=== PATIENT | male | born 1950 | race Caucasian/White ===

== ENCOUNTER 2022-08-09 18:17 | Inpatient (IN) | payer MEDICARE, OTHER ==
[~2022-08-09] VITALS: Ht 162.6 cm; Wt 73.0 kg
--- NOTE | 2022-08-09 18:33 | NUR ---
BIB [facility] C/O DYSURIA AND HEMATURIA SINCE YESTERDAY. PLACED ON BED, AAOX4, BREATHING EVEN AND UNLABORED SATURATING AT 99% WITH 3LIT O2.
[2022-08-09] MEDS ORDERED: IV NS 0.9% 1,000 ML BAG IV ONE (19:00)
--- NOTE | 2022-08-09 19:15 | NUR ---
BLOOD DRAWN AND SENT TO LAB
--- NOTE | 2022-08-09 19:18 | NUR ---
PATIENT TAKEN TO CT VIA SALINAS
[2022-08-09 19:50] LABS: ALANINE AMINOTRANSFERASE 23 U/L (12-78); ALBUMIN 3.1 g/dL (3.4-5.0); ALKALINE PHOSPHATASE 72 U/L (46-116); ASPARTATE AMINOTRANSFERASE 18 U/L (15-37); BILIRUBIN,DIRECT 0.1 mg/dL (0.0-0.2); BILIRUBIN,TOTAL 0.3 mg/dL (0.2-1.0); CALCIUM, SERUM 9.4 mg/dL (8.5-10.1); CARBON DIOXIDE 28 mmol/L (21-32); CHLORIDE 101 mmol/L (98-107); CREATININE 6.5 mg/dL (0.6-1.3); GLUCOSE 121 mg/dL (74-106); LIPASE 364 U/L (73-393); POTASSIUM 4.9 mmol/L (3.5-5.1); SODIUM SERUM 138 mmol/L (136-145); TOTAL PROTEIN, SERUM 8.5 g/dL (6.4-8.2); UREA NITROGEN, BLOOD 77 mg/dL (7-18)
[2022-08-09 20:03] LABS: BASOPHILS % (AUTO) 0.3 % (0.0-2.0); HEMATOCRIT 27 % (39-51); HEMOGLOBIN 8.8 g/dL (13.5-17.5); LYMPHOCYTES # (AUTO) 0.3 K/uL (0.8-4.8); LYMPHOCYTES % (AUTO) 7.4 % (20.0-44.0); MEAN CORPUSCULAR HGB CONC 33 g/dl (31.0-36.0); MEAN CORPUSCULAR VOLUME 112 fL (80-96); MONOCYTES # (AUTO) 0.9 K/uL (0.1-1.30); MONOCYTES % (AUTO) 19.4 % (2.0-12.0); NEUTROPHILS # (AUTO) 3.3 K/uL (1.8-8.9); NEUTROPHILS % (AUTO) 69.9 % (43.0-81.0); PLATELET COUNT (AUTO) 130 K/uL (150-450); RED BLOOD CELL COUNT(AUTO) 2.38 MIL/uL (4.5-6.0); WHITE BLOOD COUNT (AUTO) 4.7 K/uL (4.3-11.0)
--- NOTE | 2022-08-09 20:30 | NUR ---
RAMOS CATH FR16 INSERTED DRAINING TO DARK RED (BLOOD) OUTPUT CLOTS VISIBLE DR CASTRO AWARE. 3WAY RAMOS CATH FR16 NOT AVAILABLE CONTACTED ICU IF THEY HAVE AND THEY DONT HAVE.
[2022-08-09 21:32] LABS: BAND % (MANUAL) 2 % (0.0-5.0); EOSINOPHILS % (MANUAL) 3 % (0-4); LYMPHOCYTES % (MANUAL) 9 % (16-48); MONOCYTES % (MANUAL) 15 % (0-11.0); NEUTROPHILS % (MANUAL) 71 (42-76)
--- NOTE | 2022-08-09 21:35 | NUR ---
SWAB FOR COVID19 SENT TO LAB
--- NOTE | 2022-08-09 21:54 | NUR ---
URINE SAMPLE SENT TO LAB
--- NOTE | 2022-08-09 22:21 | NUR ---
DR. HAGER UROLOGIST AT PT'S BEDSIDE
[2022-08-09 22:32] LABS: BILIRUBIN,URINE SMALL (NEGATIVE); COLOR,URINE RED (YELLOW); LEUKOCYTE ESTERASE ,URINE SMALL (NEGATIVE); NITRITE, URINE NEGATIVE (NEGATIVE); PH,URINE 7.5 (5.0-8.0); PROTEIN,URINE >=300 mg/dl (NEGATIVE); UGLUCOSE NEGATIVE (NEGATIVE); UROBILINOGEN,URINE 0.2 EU/dL (0.2)
[2022-08-09 22:42] LABS: BACTERIA,URINE Rare /HPF (None Seen); RBC,URINE TOO NUMEROUS TO COUN /HPF (0-2); SQUAMOUS EPITHELIAL CELL,UR Rare /HPF (None Seen); WBC,URINE 0-2 /HPF (0-3)
[2022-08-09] MEDS ORDERED: ACETAMINOPHEN 325 MG TABLET PO PRN (23:00)
[2022-08-09] MEDS ORDERED: MAG HYDROX/AL HYDROX/SIMETH 30 ML UDC PO PRN (23:00)
[2022-08-09] MEDS ORDERED: Z GUARD REMEDY 4 OZ OINT TP PRN (23:00)
[2022-08-09] MEDS ORDERED: HYDROCODONE/APAP 5/325MG TABLET PO PRN (23:00)
[2022-08-09] MEDS ORDERED: MAGNESIUM HYDROXIDE 30 ML UDC PO PRN (23:00)
[2022-08-09] MEDS ORDERED: HYDROCODONE/APAP 10/325MG TABLET PO PRN (23:00)
[2022-08-09] MEDS ORDERED: ONDANSETRON HCL/PF 4 MG/2 ML VIAL IVP PRN (23:00)
[2022-08-09] MEDS ORDERED: TEMAZEPAM 15 MG CAPSULE PO PRN (23:00)
[2022-08-09] MEDS ORDERED: CEFTRIAXONE 1GM BAG (ER ONLY) 50 ML IV ONE (23:12)
[2022-08-09] MEDS: CEFTRIAXONE 1 G in IV D5W 50 ML IV SCH (23:15)
[2022-08-10 05:19] LABS: BASOPHILS % (AUTO) 0.3 % (0.0-2.0); EOSINOPHILS % (AUTO) 2.4 % (0.0-6.0); HEMATOCRIT 26 % (39-51); HEMOGLOBIN 8.5 g/dL (13.5-17.5); LYMPHOCYTES # (AUTO) 0.3 K/uL (0.8-4.8); LYMPHOCYTES % (AUTO) 4.3 % (20.0-44.0); MEAN CORPUSCULAR HGB CONC 33 g/dl (31.0-36.0); MEAN CORPUSCULAR VOLUME 113 fL (80-96); MONOCYTES % (AUTO) 14.9 % (2.0-12.0); NEUTROPHILS % (AUTO) 78.1 % (43.0-81.0); PLATELET COUNT (AUTO) 121 K/uL (150-450); RED BLOOD CELL COUNT(AUTO) 2.26 MIL/uL (4.5-6.0); WHITE BLOOD COUNT (AUTO) 6.4 K/uL (4.3-11.0)
[2022-08-10 05:42] LABS: CALCIUM, SERUM 9.2 mg/dL (8.5-10.1); CARBON DIOXIDE 23 mmol/L (21-32); CHLORIDE 103 mmol/L (98-107); GLUCOSE 95 mg/dL (74-106); MAGNESIUM 2.2 mg/dL (1.8-2.4); PHOSPHORUS 6.9 mg/dL (2.5-4.9); POTASSIUM 4.6 mmol/L (3.5-5.1); SODIUM SERUM 138 mmol/L (136-145)
[2022-08-10 05:59] LABS: UREA NITROGEN, BLOOD 81 mg/dL (7-18)
--- NOTE | 2022-08-10 07:57 | NUR ---
REPORT GIVEN TO JESUS NICOLE FOR [place]
--- NOTE | 2022-08-10 07:59 | NUR ---
ULTRASOUND AT BEDSIDE
[2022-08-10] MEDS ORDERED: SEVE800T8 PO (08:45)
[2022-08-10] MEDS ORDERED: NUT.237L67 PO (08:45)
[2022-08-10] MEDS ORDERED: ACET325T53 PO (08:45)
[2022-08-10] MEDS ORDERED: CARV3.12 PO (08:45)
[2022-08-10] MEDS ORDERED: AMIN887L PO (08:45)
[2022-08-10] MEDS ORDERED: FOLI0.8T2 PO (08:45)
--- NOTE | 2022-08-10 09:15 | NUR ---
CONTINUOUS MINING OPERATORBRIM PLATER NOTES RECEIVED PATIENT VIA RNEY FROM ER @0915 WITH DX OF ACUTE HEMATURIA. PATIENT NOTED WITH BLOODY DARK RED URINE VIA RAMOS CATH BAG. ALERT/ORIENTED X3. PATIENT ON 3L NC, TOLERATING WELL. NO SIGNS OF DISTRESS OR SOB NOTED. IV ACCESS ON LEFT HAND WITH 20G SL, DRY PATENT AND INTACT. 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 PT HAS RIGHT FEMORAL CATH FOR HD WITH DRESSING C/D/I. PHOTOS OF SKIN ISSUES TAKEN AND FILED ON HIS CHART. PATIENT PRESENTED WITH BRUISES ON KNEE AND LOWER BACK/SACRAL AREA. PATIENT ON HD, M,W,F. WILL RECEIVE HD TODAY. SAFETY MEASURES IN PLACE: BED LOCKED, LOWEST POSITION, SIDE RAILS UP X3, CALL LIGHT AND TABLE WITHIN REACH.
--- NOTE | 2022-08-10 09:15 | NUR ---
CABLE TV INSTALLER NOTES RECEIVED PATIENT VIA GURNEY FROM ER. PATIENT CAME IN WITH COMPLAINTS OF BLOOD IN URINE. PATIENT ALERT/ORIENTED X3. PATIENT HAD DARK RED URINE VIA RAMOS CATH. PT ON 2L NC Addendum: 08/10/22 at 1218 by JESUS ELY RN NOTES NOT COMPLETELY DONE.
--- NOTE | 2022-08-10 09:19 | NUR ---
PT TRANSFERRED TO 3W WITH ACLS PROTOCOL IN PLACE. PT TRANSFERRED IN STABLE CONDITION.
[2022-08-10 09:20] VITALS: BP 130/92
[2022-08-10] MEDS: VIT B CMPLX 3/FA/VIT C/BIOTIN 1 TAB TABLET PO SCH (09:34)
[2022-08-10] MEDS: SEVELAMER CARBONATE 800 MG POWD.PACK GT SCH ×2 (09:34→12:08)
[2022-08-10] MEDS: PANTOPRAZOLE 40 MG TABLET.DR PO SCH (09:34)
[2022-08-10] MEDS: CARVEDILOL 3.125 MG TABLET PO SCH ×2 (09:35→17:00)
[2022-08-10 09:42] LABS: EOSINOPHILS % (MANUAL) 2 % (0-4); LYMPHOCYTES % (MANUAL) 6 % (16-48); MONOCYTES % (MANUAL) 10 % (0-11.0); NEUTROPHILS % (MANUAL) 82 (42-76)
[2022-08-10 16:09] VITALS: BP 103/73
--- NOTE | 2022-08-10 16:40 | NUR ---
RN NOTES HEMODIALYSIS VIA CHEST WALL VIA RIGHT FEMORAL HD CATH FINISHED WITH 1L OUT. PT TOLERATED PROCEDURE WELL WITH NO ACUTE DISTRESS NOTED
[2022-08-10] MEDS: SEVELAMER CARBONATE 800 MG TABLET PO SCH ×2 (17:18→17:29)
--- NOTE | 2022-08-10 18:48 | NUR ---
RN CLOSING NOTES PATIENT IN BED, AWAKE, ALERT/ORIENTED 3-4. HAS O2 3L VIA NC 98%, TOLERATING WELL, NO SOB NOTED OR DISTRESS. PATIENT HAS IV ACCESS ON LH 20G SL, DRY, INTACT AND PATENT. PATIENT HAS FEMORAL FISTULA WITH DRESSING, DRY, CLEAN AND INTACT. SAFETY MEASURES IN PLACE: CALL LIGHT WITHIN REACH, BED IN LOWEST LOCKED POSITION, SIDE RAILS UP X3, BED ALARM ON. WILL ENDORSE TO NIGHT NURSE FOR C.O.C.
--- NOTE | 2022-08-10 19:20 | NUR ---
TELERN RECEIVED FULLY AWAKE, RAMOS TO GRAVITY GROSS HEMATURIA. NEEDS CLOSER OBSERVATION WILL WATCH FOR POSSIBLE OBSTRUCTION . DR. WAY FOR CONSULT TO CONTINUE. UNDERSTANDS PLAN OF CARE AND MEDICATION REGIMEN. KEPT COMFORTABL, TO CONTINUE.
[2022-08-10 20:00] VITALS: BP 125/78
[2022-08-10] MEDS: CEFTRIAXONE 1 G in IV D5W 50 ML IV SCH (21:00)
--- NOTE | 2022-08-10 22:30 | NUR ---
TELERN DISCUSSED TO PATIENT REGARDING PLAN OF CARE, AWARE OF UROLOGIST S' PLAN IN REFERENCE WITH HIS HEMATURIA. STILL WITH GROSSLY HEMATURIA, NO BLOOD CLOTS. SAFETY PRECAUTIONS EMPHASIZED, REMINDED TO CALL STAFF FOR ANY ASSISTANCE OR DISCOMFORTS, CALL LIGHT USE REVIEWED WITH PATIENT WELL UNDERSTOOD. CONTINUED MONITORING.
--- NOTE | 2022-08-10 23:00 | NUR ---
TELERN ENDORSED TO INCOMING RN FOR CONTINUITY OF CARE.
--- NOTE | 2022-08-11 04:29 | NUR ---
closing notes: slept thru the night remains alert and orientated x4 on the monitor SR this 12 hours HR 84 -88/min no c/o palpitations Addendum: 08/11/22 at 0438 by ZIA WILKES RN WRONG PATIENT
--- NOTE | 2022-08-11 04:50 | NUR ---
CLOSING NOTES: URINE FROM THE RAMOS bloody BUT CLEAR ARLETTE CALLED AND STATED NO BEDS AVAILABLE PATIENTS INSURANCE [facility] AND THAT NEEDS TO BE AUTHORIZED BEFORE A TRANSFER, NO C/O PAIN WEARS EYE GLASSES AMBULATES
[2022-08-11 06:26] LABS: BASOPHILS % (AUTO) 0.4 % (0.0-2.0); EOSINOPHILS % (AUTO) 5.7 % (0.0-6.0); HEMATOCRIT 25 % (39-51); HEMOGLOBIN 8.3 g/dL (13.5-17.5); LYMPHOCYTES # (AUTO) 0.3 K/uL (0.8-4.8); MEAN CORPUSCULAR HGB CONC 34 g/dl (31.0-36.0); MEAN CORPUSCULAR VOLUME 112 fL (80-96); MONOCYTES # (AUTO) 0.7 K/uL (0.1-1.30); MONOCYTES % (AUTO) 12.9 % (2.0-12.0); NEUTROPHILS # (AUTO) 4.2 K/uL (1.8-8.9); PLATELET COUNT (AUTO) 119 K/uL (150-450); WHITE BLOOD COUNT (AUTO) 5.6 K/uL (4.3-11.0)
[2022-08-11 06:46] LABS: CALCIUM, SERUM 9.2 mg/dL (8.5-10.1); CARBON DIOXIDE 26 mmol/L (21-32); CHLORIDE 100 mmol/L (98-107); CREATININE 6.4 mg/dL (0.6-1.3); GLUCOSE 89 mg/dL (74-106); POTASSIUM 4.4 mmol/L (3.5-5.1); SODIUM SERUM 135 mmol/L (136-145); UREA NITROGEN, BLOOD 60 mg/dL (7-18)
--- NOTE | 2022-08-11 07:43 | NUR ---
MS RN OPENING NOTES RECEIVED PATIENT ON BED AWAKE A/OX3 NO SOB OR DISTRESS NOTED . NOTED WITH BLOODY DARK RED URINE VIA RAMOS CATH BAG. ON 3L O2 VIA NC TOLERATING WELL. . IV ACCESS ON LEFT HAND WITH 20G SL, DRY PATENT AND INTACT. 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 PT HAS RIGHT FEMORAL CATH FOR HD WITH DRESSING C/D/I . FOR HEMODIALYSIS TODAY . SAFETY MEASURES IN PLACE: BED LOCKED, LOWEST POSITION, SIDE RAILS UP X3, CALL LIGHT AND TABLE WITHIN REACH. WILL CONTINUE TO MONITOR
[2022-08-11 08:00] VITALS: BP 121/72
[2022-08-11] MEDS: VIT B CMPLX 3/FA/VIT C/BIOTIN 1 TAB TABLET PO SCH (08:30)
[2022-08-11] MEDS: PANTOPRAZOLE 40 MG TABLET.DR PO SCH (08:30)
[2022-08-11] MEDS: SEVELAMER CARBONATE 800 MG TABLET PO SCH ×3 (08:31→17:49)
[2022-08-11] MEDS: CARVEDILOL 3.125 MG TABLET PO SCH ×2 (08:32→17:50)
[2022-08-11 11:28] LABS: EOSINOPHILS % (MANUAL) 8 % (0-4); LYMPHOCYTES % (MANUAL) 5 % (16-48); MONOCYTES % (MANUAL) 8 % (0-11.0); NEUTROPHILS % (MANUAL) 79 (42-76)
[2022-08-11] MEDS ORDERED: ALBUMIN 25% 12.5 GM/50 ML BOTTLE IV ONE (15:00)
[2022-08-11 16:00] VITALS: BP 107/70
[2022-08-11] MEDS ORDERED: ALBUMIN 25% 25 GM in PREMIX 1 EA IV ONE (16:00)
--- NOTE | 2022-08-11 18:25 | NUR ---
MS RN CLOSING NOTES PATIENT ON BED AWAKE A/OX3, VERBALLY RESPONSIVE , NO SOB OR DISTRESS NOTED . ALL DUE MEDS GIVEN ORDERED STILL NOTED WITH BLOODY DARK RED URINE VIA RAMOS CATH BAG. ON 3L O2 VIA NC TOLERATING WELL. . IV ACCESS ON LEFT HAND WITH 20G SL, DRY PATENT AND INTACT. 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 PT HAS RIGHT FEMORAL CATH FOR HD WITH DRESSING C/D/I . HEMODIALYSIS DONE TODAY WITH 800 ML OUT . SAFETY MEASURES IN PLACE: BED LOCKED, LOWEST POSITION, SIDE RAILS UP X3, CALL LIGHT AND TABLE WITHIN REACH. WILL ENDORSE TO NEXT SHIFT
--- NOTE | 2022-08-11 19:45 | NUR ---
MS RN NOTES RECEIVED ON BED,A/O X3,ON HIGH FOWLERS POSITION WATCHING TV PROGRAM,BREATHING REGULAR,O2 IN USED AT 3L/NC TO KEEP O2 SAT ABOVE 90%.WITH LEFT OLD HD FISTULA ON LEFT ARM,NOT WORKING,RIGHT FEMORAL CATH FOR HD TREATMENT.WITH LEFT HAND SALINE LOCK FOR MEDS.NOTED RAMOS IN PLACE DRAIN BLOODY URINE OUTPUT.FALL RISK,BED ON LOWEST POSITION AND LOCKED,CALL LIGHT IN REACH,NEEDS ANTICIPATED.
[2022-08-11 20:00] VITALS: BP 114/70
[2022-08-11] MEDS ORDERED: PROCHLORPERAZINE MALEATE 10 MG TABLET PO ONE (21:00)
[2022-08-11] MEDS: CEFTRIAXONE 1 G in IV D5W 50 ML IV SCH (21:11)
--- NOTE | 2022-08-12 01:31 | NUR ---
patient c/o no bm for 3 days so MOM was given
[2022-08-12 07:07] LABS: CALCIUM, SERUM 9.3 mg/dL (8.5-10.1); CARBON DIOXIDE 28 mmol/L (21-32); CHLORIDE 104 mmol/L (98-107); CREATININE 4.5 mg/dL (0.6-1.3); GLUCOSE 91 mg/dL (74-106); POTASSIUM 4.4 mmol/L (3.5-5.1); SODIUM SERUM 140 mmol/L (136-145); UREA NITROGEN, BLOOD 30 mg/dL (7-18)
--- NOTE | 2022-08-12 07:21 | NUR ---
MS RN OPENING NOTES RECEIVED PATIENT ON BED AWAKE A/OX3 NO SOB OR DISTRESS NOTED . NOTED WITH BLOODY DARK RED URINE VIA RAMOS CATH BAG. ON 3L O2 VIA NC TOLERATING WELL. NO C/O OF PAIN AND DISCOMFORT , IV ACCESS ON LEFT HAND WITH 20G SL, DRY PATENT AND INTACT . PT HAS RIGHT FEMORAL CATH FOR HD WITH DRESSING C/D/I . SAFETY MEASURES IN PLACE: BED LOCKED, LOWEST POSITION, SIDE RAILS UP X3, CALL LIGHT AND TABLE WITHIN REACH. WILL CONTINUE TO MONITOR
[2022-08-12 07:23] LABS: BASOPHILS % (AUTO) 0.5 % (0.0-2.0); EOSINOPHILS % (AUTO) 7.7 % (0.0-6.0); HEMATOCRIT 26 % (39-51); HEMOGLOBIN 8.4 g/dL (13.5-17.5); LYMPHOCYTES # (AUTO) 0.3 K/uL (0.8-4.8); LYMPHOCYTES % (AUTO) 5.5 % (20.0-44.0); MEAN CORPUSCULAR HGB CONC 33 g/dl (31.0-36.0); MEAN CORPUSCULAR VOLUME 113 fL (80-96); MONOCYTES # (AUTO) 0.7 K/uL (0.1-1.30); MONOCYTES % (AUTO) 13.6 % (2.0-12.0); NEUTROPHILS # (AUTO) 3.7 K/uL (1.8-8.9); NEUTROPHILS % (AUTO) 72.7 % (43.0-81.0); PLATELET COUNT (AUTO) 123 K/uL (150-450); RED BLOOD CELL COUNT(AUTO) 2.26 MIL/uL (4.5-6.0); WHITE BLOOD COUNT (AUTO) 5.1 K/uL (4.3-11.0)
[2022-08-12 08:00] VITALS: BP 118/78
[2022-08-12] MEDS: SEVELAMER CARBONATE 800 MG TABLET PO SCH ×3 (08:00→17:35)
[2022-08-12] MEDS: PANTOPRAZOLE 40 MG TABLET.DR PO SCH (08:00)
[2022-08-12] MEDS: VIT B CMPLX 3/FA/VIT C/BIOTIN 1 TAB TABLET PO SCH (08:08)
[2022-08-12] MEDS: CARVEDILOL 3.125 MG TABLET PO SCH ×2 (08:32→17:35)
--- NOTE | 2022-08-12 10:59 | NUR ---
RN NOTES PATIENT SAID THAT HE DIDNT HAVE BOWEL MOVEMENT FOR 3 DAYS AND MOM WAS GIVEN LAST NIGHT NOTHING HELP , DR INGRAM AWARE AND WITH ORDER OF MIRALX AND COLACE BID , ORDER NOTED AND CARRIED OUT
--- NOTE | 2022-08-12 12:43 | NUR ---
RN NOTE PATIENT C/O THAT HE IS BLOATED , MISAEL CHASE ORDERED
[2022-08-12 16:00] VITALS: BP 128/79
[2022-08-12] MEDS: DOCUSATE SODIUM 100 MG CAPSULE PO SCH (17:34)
[2022-08-12] MEDS: POLYETHYLENE GLYCOL 3350 17 GM POWD.PACK PO SCH (17:34)
--- NOTE | 2022-08-12 18:29 | NUR ---
MS RN CLOSING NOTES PATIENT ON BED AWAKE A/OX3 ALL DUE MED GIVEN ORDERED , NO SOB OR DISTRESS NOTED . STILL WITH NOTED WITH BLOODY DARK RED URINE VIA RAMOS CATH BAG. ON 3L O2 VIA NC TOLERATING WELL. NO C/O OF PAIN AND DISCOMFORT , IV ACCESS ON LEFT HAND WITH 20G SL, DRY PATENT AND INTACT . PT HAS RIGHT FEMORAL CATH FOR HD WITH DRESSING C/D/I . PATIENT WITH NEW ORDER OF COLACE AND MIRALAX BID DUE TO NO BOWEL MOVEMENT FOR 3 DAY, MEDS GIVEN ORDERED , SAFETY MEASURES IN PLACE: BED LOCKED, LOWEST POSITION, SIDE RAILS UP X3, CALL LIGHT AND TABLE WITHIN REACH. WILL ENDORSED TO NEXT SHIFT
[2022-08-12 18:47] VITALS: BP 128/79
--- NOTE | 2022-08-12 19:30 | NUR ---
MS RN OPENING NOTES RECEIVED PATIENT LYING IN BED WATCHING TV. A/O X4, HARD OF HEARING. BREATHING EVEN AND NON-LABORED. ON O2 AT 3LPM VIA NASAL CANULA. NOT IN APPARENT DISTRESS. DENIES PAIN AT THIS TIME. HAS LEFT HAND IV ACCESS #20G AND SALINE LOCKED. NO S/S OF INFILTRATION NOTED. RIGHT FEMORAL HD ACCESS DRESSING C/D/I. HAS INDWELLING RAMOS CATHETER DRAINING DARK RED URINE TO BAG BY GRAVITY. PER PATIENT, HE HAD A BOWEL MOVEMENT THIS MORNING. SAFETY MEASURES IN PLACE: BED LOCKED AND IN LOWEST POSITION, SIDE RAILS UP X2, CALL LIGHT WITHIN REACH. WILL CONTINUE POC.
[2022-08-12 20:00] VITALS: BP 129/74
[2022-08-12] MEDS: CEFTRIAXONE 1 G in IV D5W 50 ML IV SCH (20:26)
--- NOTE | 2022-08-13 02:04 | NUR ---
MS RN NOTES PATIENT C/O SOB. NO CRACKLES OR WHEEZING HEARD ON AUSCULTATION. SATURATING AROUND 96%-99% ON O2 VIA NC AT 3LPM. HOB ELEVATED. NOTIFIED IARM ADJUNCT INSTRUCTOR IN ECONOMICS AND ORDERED PRN ALBUTEROL. NOTED AND CARRIED OUT.
[2022-08-13] MEDS ORDERED: ALBUTEROL FS 2.5 MG/3 ML VIAL.NEB NEB PRN (02:30)
[2022-08-13 06:20] LABS: BASOPHILS % (AUTO) 0.6 % (0.0-2.0); EOSINOPHILS % (AUTO) 5.6 % (0.0-6.0); HEMATOCRIT 26 % (39-51); HEMOGLOBIN 8.6 g/dL (13.5-17.5); LYMPHOCYTES # (AUTO) 0.3 K/uL (0.8-4.8); LYMPHOCYTES % (AUTO) 5.3 % (20.0-44.0); MEAN CORPUSCULAR HGB CONC 33 g/dl (31.0-36.0); MEAN CORPUSCULAR VOLUME 113 fL (80-96); MONOCYTES # (AUTO) 0.9 K/uL (0.1-1.30); MONOCYTES % (AUTO) 15.5 % (2.0-12.0); NEUTROPHILS # (AUTO) 4.1 K/uL (1.8-8.9); PLATELET COUNT (AUTO) 122 K/uL (150-450); RED BLOOD CELL COUNT(AUTO) 2.28 MIL/uL (4.5-6.0); WHITE BLOOD COUNT (AUTO) 5.6 K/uL (4.3-11.0)
--- NOTE | 2022-08-13 06:27 | NUR ---
MS RN CLOSING NOTES PATIENT LYING IN BED SLEEPING INTERMITTENTLY. A/O X4, NO SOB OR AT THIS TIME. ON O2 AT 3LPM VIA NASAL CANULA. SATURATING AT 99%. NO PAIN OR DISCOMFORT NOTED. AFEBRILE. HAS LEFT HAND IV ACCESS #20G AND SALINE LOCKED. INTACT, PATENT AND FLUSHING. RIGHT FEMORAL HD ACCESS DRESSING C/D/I. RAMOS CATHETER URINE OUTPUT 75ML. HAD SOFT SMALL STOOL X1. ALL DUE MEDS GIVEN AND NEEDS ATTENDED. SAFETY MEASURES MAINTAINED. WILL ENDORSE TO NEXT SHIFT FOR [place].
[2022-08-13 06:47] LABS: CALCIUM, SERUM 9.5 mg/dL (8.5-10.1); CARBON DIOXIDE 26 mmol/L (21-32); CHLORIDE 104 mmol/L (98-107); CREATININE 6.8 mg/dL (0.6-1.3); GLUCOSE 98 mg/dL (74-106); POTASSIUM 5.2 mmol/L (3.5-5.1); SODIUM SERUM 138 mmol/L (136-145); UREA NITROGEN, BLOOD 48 mg/dL (7-18)
--- NOTE | 2022-08-13 07:30 | NUR ---
RN OPENING NOTE- PT AWAKE IN BED, . A/O X4, HARD OF HEARING. BREATHING EVEN AND NON-LABORED. ON O2 AT 3LPM VIA NASAL CANULA. NOT IN APPARENT DISTRESS. DENIES PAIN AT THIS TIME. HAS LEFT HAND IV ACCESS #20G AND SALINE LOCKED. NO S/S OF INFILTRATION NOTED. RIGHT FEMORAL HD ACCESS DRESSING C/D/I. HAS INDWELLING RAMOS CATHETER DRAINING TO GRAVITY. PER PATIENT, HE HAD A BOWEL MOVEMENT THIS MORNING. SAFETY MEASURES IN PLACE: BED LOCKED AND IN LOWEST POSITION, SIDE RAILS UP X2, CALL LIGHT WITHIN REACH. MONITOR / ASSIST
[2022-08-13 08:00] VITALS: BP 140/78
--- NOTE | 2022-08-13 08:16 | NUR ---
WOUND CARE CONSULT: PT PRESENTS WITH AREAS OF SKIN DISCOLORATION AND EXCORIATED AREAS, PRESENT ON ADMISSION. RAMOS CATH NOTED. DISCUSSED SKIN PROTECTION WITH NURSING STAFF. WILL SEE PRN.
[2022-08-13] MEDS: POLYETHYLENE GLYCOL 3350 17 GM POWD.PACK PO SCH ×2 (08:34→16:48)
[2022-08-13] MEDS: VIT B CMPLX 3/FA/VIT C/BIOTIN 1 TAB TABLET PO SCH (08:34)
[2022-08-13] MEDS: CARVEDILOL 3.125 MG TABLET PO SCH ×2 (08:35→16:49)
[2022-08-13] MEDS: SEVELAMER CARBONATE 800 MG TABLET PO SCH ×3 (08:35→18:13)
[2022-08-13] MEDS: PANTOPRAZOLE 40 MG TABLET.DR PO SCH (08:35)
[2022-08-13] MEDS: DOCUSATE SODIUM 100 MG CAPSULE PO SCH ×2 (08:35→16:48)
[2022-08-13 16:00] VITALS: BP 113/71
--- NOTE | 2022-08-13 18:34 | NUR ---
RN CLOSING NOTE- PT AWAKE IN BED, A/O X4, HARD OF HEARING. BREATHING EVEN AND NON-LABORED. ON O2 AT 3LPM VIA NASAL CANULA. NOT IN APPARENT DISTRESS. DENIES PAIN AT THIS TIME. HAS LEFT HAND IV ACCESS #20G AND SALINE LOCKED. NO S/S OF INFILTRATION NOTED. RIGHT FEMORAL HD ACCESS DRESSING C/D/I. HAS INDWELLING RAMOS CATHETER DRAINING TO GRAVITY. NPO AFTER MN, CYSTOSCOPY AND BIOPSY IN AM. SAFETY MEASURES IN PLACE: BED LOCKED AND IN LOWEST POSITION, SIDE RAILS UP X2, CALL LIGHT WITHIN REACH. MONITOR / ASSIST
--- NOTE | 2022-08-13 19:30 | NUR ---
RN OPENING NOTE- PT AWAKE IN BED, A/O X4, HARD OF HEARING. BREATHING EVEN AND NON-LABORED. ON O2 AT 3LPM VIA NASAL CANULA. NOT IN APPARENT DISTRESS. DENIES PAIN AT THIS TIME. HAS LEFT HAND IV ACCESS #20G AND SALINE LOCKED. NO S/S OF INFILTRATION NOTED. RIGHT FEMORAL HD ACCESS DRESSING C/D/I. HAS INDWELLING RAMOS CATHETER DRAINING TO GRAVITY. NPO AFTER MN, CYSTOSCOPY AND BIOPSY IN AM RECEIVED A CALL FROM [facility] TO CONFIRM PROCEDURE WILL TAKE PLACE TOMORROW IN THE AM. SAFETY MEASURES IN PLACE: BED LOCKED AND IN LOWEST POSITION, SIDE RAILS UP X2, CALL LIGHT WITHIN REACH.
--- NOTE | 2022-08-13 19:36 | NUR ---
RN CLOSING NOTE- PT AWAKE IN BED, A/O X4, HARD OF HEARING. BREATHING EVEN AND NON-LABORED. ON O2 AT 3LPM VIA NASAL CANULA. NOT IN APPARENT DISTRESS. DENIES PAIN AT THIS TIME. HAS LEFT HAND IV ACCESS #20G AND SALINE LOCKED. NO S/S OF INFILTRATION NOTED. RIGHT FEMORAL HD ACCESS DRESSING C/D/I. HAS INDWELLING RAMOS CATHETER DRAINING TO GRAVITY. NPO AFTER MN, CYSTOSCOPY AND BIOPSY IN AM. SAFETY MEASURES IN PLACE: BED LOCKED AND IN LOWEST POSITION, SIDE RAILS UP X2, CALL LIGHT WITHIN REACH. MONITOR / ASSIST Addendum: 08/13/22 at 2136 by NORMAN DENNY RN OPENING
[2022-08-13 20:00] VITALS: BP 122/71
[2022-08-13] MEDS: CEFTRIAXONE 1 G in IV D5W 50 ML IV SCH (20:49)
--- NOTE | 2022-08-14 06:34 | NUR ---
RN CLOSING NOTE- PT AWAKE IN BED, A/O X4, HARD OF HEARING. BREATHING EVEN AND NON-LABORED. ON O2 AT 3LPM VIA NASAL CANULA. NOT IN APPARENT DISTRESS. DENIES PAIN AT THIS TIME. HAS LEFT WRIST IV ACCESS #20G AND SALINE LOCKED. NO S/S OF INFILTRATION NOTED. RIGHT FEMORAL HD ACCESS DRESSING C/D/I. HAS INDWELLING RAMOS CATHETER DRAINING TO GRAVITY. NPO SINCE DC FOR CYSTOSCOPY AND BIOPSY THIS MORNING.SAFETY MEASURES IN PLACE: BED LOCKED AND IN LOWEST POSITION, SIDE RAILS UP X2, CALL LIGHT WITHIN REACH. WILL ENDORSE TO DAY SHIFT NURSE.
[2022-08-14] MEDS ORDERED: BUPIVACAINE 0.25% 75 MG/30 ML VIAL ONE (07:11)
[2022-08-14] MEDS ORDERED: ANESTHESIA TRAY IN PYXIS 1 EA TRAY MC ONE (07:11)
[2022-08-14] MEDS ORDERED: SEVOFLURANE 250 ML BOTTLE IH ONE (07:19)
[2022-08-14] MEDS: PANTOPRAZOLE 40 MG TABLET.DR PO SCH (07:30)
--- NOTE | 2022-08-14 07:45 | NUR ---
RN OPENING NOTE PATIENT AWAKE IN BED RESTING. A/O X 3-4. NO PAIN NOTED AT THIS TIME. ON 2L OXYGEN VIA NC, NO DISTRESS OR SHORTNESS OF BREATH NOTED. IV ACCESS L WRIST#20G, INTACT, PATENT AND FLUSHING WELL. FALL AND SAFETY MEASURES IN PLACE, BED ALARM ON, BED IN LOW AND LOCK POSITION, CALL LIGHT AND TABLE WITHIN EASY REACH, SIDE RAILS UP X2. WILL CONTINUE TO MONITOR.
[2022-08-14 08:00] VITALS: BP 127/80
[2022-08-14] MEDS: SEVELAMER CARBONATE 800 MG TABLET PO SCH ×3 (08:00→17:31)
[2022-08-14] MEDS: DOCUSATE SODIUM 100 MG CAPSULE PO SCH ×2 (08:18→17:31)
[2022-08-14] MEDS: CARVEDILOL 3.125 MG TABLET PO SCH ×2 (08:18→17:31)
[2022-08-14] MEDS: VIT B CMPLX 3/FA/VIT C/BIOTIN 1 TAB TABLET PO SCH (08:19)
[2022-08-14] MEDS: POLYETHYLENE GLYCOL 3350 17 GM POWD.PACK PO SCH ×2 (08:19→17:31)
[2022-08-14] MEDS ORDERED: FENTANYL PF 100MCG/2ML AMPUL ONE (08:26)
[2022-08-14 11:00] VITALS: BP 131/92
--- NOTE | 2022-08-14 11:00 | NUR ---
RN NOTE PATIENT WENT FOR A CYSTOSCOPY TRANSURETHRAL RESECTION OF BLADDER TUMOR, BLADDER BIOPSY FULGURATION OF BLEEDING AT 8:15AM, PATIENT CAME BACK AT 10:45AM. PATIENT IS RESTING IN ROOM COMFORTABLY, PATIENT STATED NO PAIN AT THE MOMENT, V/S TAKEN, STABLE AND RECORDED. WILL CONTINUE TO MONITOR.
[2022-08-14 16:00] VITALS: BP 122/76
--- NOTE | 2022-08-14 18:58 | NUR ---
RN OPENING NOTE PATIENT AWAKE IN BED RESTING. A/O X 3-4. NO PAIN NOTED AT THIS TIME. ON 3L OXYGEN VIA NC, NO DISTRESS OR SHORTNESS OF BREATH NOTED. IV ACCESS R HAND #20G, INTACT, PATENT AND FLUSHING WELL. PATIENT HAVE A RAMOS CATHETER IN PLACE AND DRAINING WELL OUTPUT 5O ML, HEMATURIA. SCHEDULE MEDICATIONS ADMINISTERED. FALL AND SAFETY MEASURES IN PLACE, BED ALARM ON, BED IN LOW AND LOCK POSITION, CALL LIGHT AND TABLE WITHIN EASY REACH, SIDE RAILS UP X2. WILL ENDORSE TO LIQUID WASTE TREATMENT PLANT OPERATOR. Addendum: 08/14/22 at 1901 by Dannielle May RN RN CLOSING NOTE
--- NOTE | 2022-08-14 19:48 | NUR ---
RN CLOSING NOTE PATIENT AWAKE IN BED RESTING. A/O X 3-4. NO PAIN NOTED AT THIS TIME. ON 3L OXYGEN VIA NC, NO DISTRESS OR SHORTNESS OF BREATH NOTED. IV ACCESS R HAND #20G, INTACT, PATENT AND FLUSHING WELL. PATIENT HAVE A RAMOS CATHETER IN PLACE AND DRAINING WELL NOTED WITH HEMATURIA. FALL AND SAFETY MEASURES IN PLACE, BED ALARM ON, BED IN LOW AND LOCK POSITION, CALL LIGHT AND TABLE WITHIN EASY REACH, SIDE RAILS UP X2.
[2022-08-14 20:09] VITALS: BP 107/62
[2022-08-14] MEDS: CEFTRIAXONE 1 G in IV D5W 50 ML IV SCH (20:45)
--- NOTE | 2022-08-14 23:25 | NUR ---
RN NOTE PT SEEN BY DR HAGER THIS EVENING PER DR HAGER PTS RAMOS TO BE IRRIGATE CONTINUOUSLY THROUGHOUT THE NIGHT. NOTED JERE MANCERA.
--- NOTE | 2022-08-15 07:57 | NUR ---
RN OPENING NOTE PATIENT AWAKE IN BED RESTING. A/O X 3-4. NO PAIN NOTED AT THIS TIME. ON 3L OXYGEN VIA NC, NO DISTRESS OR SHORTNESS OF BREATH NOTED. IV ACCESS R HAND #20G, INTACT, PATENT AND FLUSHING WELL. PATIENT HAVE A RAMSO CATHETER IN PLACE AND DRAINING WELL, HEMATURIA. FALL AND SAFETY MEASURES IN PLACE, BED ALARM ON, BED IN LOW AND LOCK POSITION, CALL LIGHT AND TABLE WITHIN EASY REACH, SIDE RAILS UP X2. WILL CONTINUE TO MONITOR.
[2022-08-15 08:00] VITALS: BP 115/71
[2022-08-15] MEDS: CARVEDILOL 3.125 MG TABLET PO SCH ×2 (09:00→17:16)
[2022-08-15] MEDS: DOCUSATE SODIUM 100 MG CAPSULE PO SCH ×2 (09:02→17:15)
[2022-08-15] MEDS: POLYETHYLENE GLYCOL 3350 17 GM POWD.PACK PO SCH ×2 (09:03→17:15)
[2022-08-15] MEDS: VIT B CMPLX 3/FA/VIT C/BIOTIN 1 TAB TABLET PO SCH (09:03)
[2022-08-15] MEDS: SEVELAMER CARBONATE 800 MG TABLET PO SCH ×3 (09:05→17:15)
[2022-08-15] MEDS: PANTOPRAZOLE 40 MG TABLET.DR PO SCH (09:05)
[2022-08-15] MEDS ORDERED: CEPH500T PO (12:21)
--- NOTE | 2022-08-15 15:00 | NUR ---
RN NOTE PATIENT RAMOS CATHETER WAS REMOVED PER DOCTOR ORDER. OUTPUT 50 ML LIGHT PINK. PATIENT STATED NO BLADDER DISCOMFORT BUT HAVE GENITAL TENDERNESS AND REFUSED GENITAL HYGIENE. WILL CONTINUE TO MONITOR.
[2022-08-15 16:00] VITALS: BP 113/62
[2022-08-15 17:16] VITALS: BP 113/62
--- NOTE | 2022-08-15 18:54 | NUR ---
COLOR CORRECTOR NOTE PATIENT DISCHARGE IN STABLE MEDICAL CONDITION. A/O X4. V/S TAKEN, STABLE. NO IV ACCESS. NAME ARM BAND REMOVED. REFUSED SKIN ASSESSMENT. ALL BELONGINGS CHECKED AND SIGNED. HEALTH TEACHING AND DISCHARGE INSTRUCTIONS GIVEN AND VERBALIZED UNDERSTANDING. DISCUSSED PRESCRIPTION WITH PATIENT. INSTRUCTED INCASE OF EMERGENCY CALL 911 OR GO TO NEAREST ER. PATIENT WENT BACK TO [facility]. REPORT GIVEN TO BALDOMERO @ 14:50, ROOM 14C, . PATIENT LEFT UNIT VIA GURNEY WITH NO SIGNS OF DISTRESS, ACCOMPANIED BY PARAMEDICS. CHARGE NURSE AWARE OF DISCHARGED.
[2022-08-15] MEDS ORDERED: MEROPENEM 500 MG in IV NS 0.9% 50 ML IV SCH (21:00)
== END 2022-08-15 19:00 | DRG 668 ==
LOC: ER 18:22 → TRANSITION 22:44 → TELE 08-10 08:00 → MED 08-10 17:46
PROVIDERS: ADMIT Nurse Practitioner Acute Care; ATTEND Nurse Practitioner Acute Care
PROC: 5A1D70Z Performance of Urinary Filtration, Intermittent, Less than 6 Hours Per Day (ICD-10-PCS; 2022-08-10)
PROC: 0T5B8ZZ Destruction of Bladder, Via Natural or Artificial Opening Endoscopic (ICD-10-PCS; principal; 2022-08-13)
PROC: 0T7D8ZZ Dilation of Urethra, Via Natural or Artificial Opening Endoscopic (ICD-10-PCS; 2022-08-13)
PROC: 0TBB8ZX Excision of Bladder, Via Natural or Artificial Opening Endoscopic, Diagnostic (ICD-10-PCS; 2022-08-13)
DX: N30.91 Cystitis, unspecified with hematuria (principal); G93.41 Metabolic encephalopathy; N18.6 End stage renal disease; I13.2 Hypertensive heart and chronic kidney disease with heart failure and with stage 5 chronic kidney disease, or end stage renal disease; N13.6 Pyonephrosis; R31.0 Gross hematuria; D63.8 Anemia in other chronic diseases classified elsewhere; N32.89 Other specified disorders of bladder; Z20.822 Contact with and (suspected) exposure to COVID-19; I50.9 Heart failure, unspecified; J45.909 Unspecified asthma, uncomplicated; M19.90 Unspecified osteoarthritis, unspecified site; Z87.09 Personal history of other diseases of the respiratory system; B96.89 Other specified bacterial agents as the cause of diseases classified elsewhere; D50.0 Iron deficiency anemia secondary to blood loss (chronic); R26.9 Unspecified abnormalities of gait and mobility; M89.8X9 Other specified disorders of bone, unspecified site; N40.0 Benign prostatic hyperplasia without lower urinary tract symptoms; Z99.2 Dependence on renal dialysis; Z79.899 Other long term (current) drug therapy
CPT/HCPCS: 36415; 71045-TC; 76770-TC; 80048-TC; 80076-TC; 81001; 83690-TC; 83735-TC; 84100-TC; 85025-TC; 85610-TC; 85730-TC; 86706; 86850-TC; 87081-TC; 87086-TC; 87186-TC; 87340; 90935-TC; 94799-TC; A4216; A4217; G0378; J0696; J1100; J2185; J2405; J2704; J3010; J3490; J7030; J7050; J7060; P9047; Q0164

== ENCOUNTER 2022-11-08 11:24 | Inpatient (IN) | payer MEDICARE, OTHER ==
[~2022-11-08] VITALS: Ht 162.6 cm; Wt 70.3 kg
[~2022-11-08 11:24] MED LIST: ACET325T53 PO; AMIN887L PO; CARV3.12 PO; CEPH500T PO; FOLI0.8T2 PO; NUT.237L67 PO; SEVE800T8 PO
--- NOTE | 2022-11-08 11:48 | NUR ---
TECH AT BEDSIDE FOR EKG
--- NOTE | 2022-11-08 11:51 | NUR ---
ZOOKEEPER AT BEDSIDE FOR XRAY
--- NOTE | 2022-11-08 11:52 | NUR ---
MOVE SHEET SUBMITTED.
[2022-11-08] MEDS ORDERED: IV NS 0.9% 1,000 ML BAG IV ONE (12:00)
[2022-11-08] MEDS ORDERED: CINA30TA2 PO (12:05)
[2022-11-08] MEDS ORDERED: ALBU2.5V13 IH (12:05)
[2022-11-08] MEDS ORDERED: VITA1TAB56 PO (12:05)
[2022-11-08] MEDS ORDERED: MAGN400O6 PO (12:05)
[2022-11-08] MEDS ORDERED: PANT40TA2 PO (12:05)
[2022-11-08 12:19] LABS: BASOPHILS # (AUTO) 0.1 K/uL (0.0-0.2); EOSINOPHILS % (AUTO) 0.1 % (0.0-6.0); HEMATOCRIT 36 % (39-51); HEMOGLOBIN 11.8 g/dL (13.5-17.5); LYMPHOCYTES # (AUTO) 0.2 K/uL (0.8-4.8); LYMPHOCYTES % (AUTO) 1.2 % (20.0-44.0); MEAN CORPUSCULAR HGB CONC 32 g/dl (31.0-36.0); MEAN CORPUSCULAR VOLUME 110 fL (80-96); MONOCYTES # (AUTO) 0.9 K/uL (0.1-1.30); MONOCYTES % (AUTO) 6.6 % (2.0-12.0); NEUTROPHILS # (AUTO) 12.1 K/uL (1.8-8.9); NEUTROPHILS % (AUTO) 91.1 % (43.0-81.0); PLATELET COUNT (AUTO) 131 K/uL (150-450); RED BLOOD CELL COUNT(AUTO) 3.33 MIL/uL (4.5-6.0); WHITE BLOOD COUNT (AUTO) 13.3 K/uL (4.3-11.0)
--- NOTE | 2022-11-08 12:20 | NUR ---
COVID SWAB COLLECTED AND SENT TO LAB
--- NOTE | 2022-11-08 12:33 | NUR ---
PT UNABLE TO PROVIDE URINE AT THIS TIME
[2022-11-08 12:35] LABS: ALANINE AMINOTRANSFERASE 23 U/L (12-78); ALBUMIN 3.5 g/dL (3.4-5.0); ALKALINE PHOSPHATASE 75 U/L (46-116); ASPARTATE AMINOTRANSFERASE 25 U/L (15-37); BILIRUBIN,DIRECT 0.2 mg/dL (0.0-0.2); BILIRUBIN,TOTAL 0.5 mg/dL (0.2-1.0); CALCIUM, SERUM 7.9 mg/dL (8.5-10.1); CARBON DIOXIDE 23 mmol/L (21-32); CHLORIDE 95 mmol/L (98-107); GLUCOSE 108 mg/dL (74-106); SODIUM SERUM 130 mmol/L (136-145); TOTAL PROTEIN, SERUM 9.5 g/dL (6.4-8.2)
--- NOTE | 2022-11-08 12:49 | NUR ---
KASIA PATEL [facility] [phone]
--- NOTE | 2022-11-08 12:49 | NUR ---
[facility] CALLED SAS PROGRAMMER REMOTE PAGED.
[2022-11-08 12:51] LABS: CREATININE 7.9 mg/dL (0.6-1.3); UREA NITROGEN, BLOOD 93 mg/dL (7-18)
--- NOTE | 2022-11-08 12:53 | NUR ---
BUN-93, CREA-7.9, DR BENTLEY MADE AWARE
--- NOTE | 2022-11-08 13:18 | NUR ---
DR BENTLEY SPEAKING W/ MATT HOWARD, DNP
[2022-11-08] MEDS ORDERED: ACETAMINOPHEN 325 MG TABLET PO PRN (14:30)
--- NOTE | 2022-11-08 14:47 | NUR ---
ROOM 314-1
--- NOTE | 2022-11-08 15:24 | NUR ---
PT REPORT GIVEN TO COREY RODRIGUEZ
--- NOTE | 2022-11-08 15:30 | NUR ---
PATIENT TRANSFERRED FROM ER UNIT TO [facility] - AT 15OOH VIA HIS BED ACCOMPANIED BY ER MENTAL HEALTH TECH. PATIENT IS ALERT AND ORIENTED X 2, ABLE TO MAKE NEEDS KNOWN. DENIES PAIN OR ANY DISCOMFOR AT THIS TIME. ORIENTED TO STAFF AND ROOM; VITAL SIGNS STABLE AND RECORDED. ON NASAL CANNULA AT 3 LPM AND NO RESPIRATORY DISTRESS NOTED; PHYSICAL ASSESSMENT DONE AND PICTURES TAKEN; WITH IV ACCESS IN LFA G20 - SALINE LOCK, INTACT AND PATENT; WITH LEFT FEMORAL CATHETER; SAFETY MEASURES IN PLACED, BED IN LOWEST POSITION, LOCKED, SIDE RAILS UP X 2, CALL NOGUERA WITHIN REACH. WILL CONTINUE TO MONITOR THROUGHOUT SHIFT
--- NOTE | 2022-11-08 16:05 | NUR ---
PT TRANSFERRED TO UNIT VIA SALINAS ACLS PROTOCOL. WARM HANDOFF GIVEN TO RN ASSIGNED.
[2022-11-08] MEDS: PANTOPRAZOLE 40 MG VIAL IV SCH ×2 (16:35→21:00)
[2022-11-08 17:00] VITALS: BP 109/48
[2022-11-08] MEDS: ONDANSETRON HCL/PF 4 MG/2 ML VIAL IVP PRN (18:25)
--- NOTE | 2022-11-08 18:40 | NUR ---
RIBBON HANKING MACHINE OPERATOR NOTE PATIENT TRANSFERRED FROM ER TO 314 - 1 AT 15OOH VIA HIS BED ACCOMPANIED BY ER GEOCHEMIST. PATIENT IS ALERT AND ORIENTED X 2, ABLE TO MAKE NEEDS KNOWN. DENIES PAIN OR ANY DISCOMFORT AT THIS TIME. ORIENTED TO STAFF AND ROOM; VITAL SIGNS STABLE AND RECORDED. ON NASAL CANNULA AT 3 LPM AND NO RESPIRATORY DISTRESS NOTED; HOOKED TO TANK CAR REPAIRER; PHYSICAL ASSESSMENT DONE AND PICTURES TAKEN; WITH IV ACCESS IN LFA G20 - SALINE LOCK, INTACT AND PATENT; WITH LEFT FEMORAL CATHETER; SAFETY MEASURES IN PLACED, BED IN LOWEST POSITION, LOCKED, SIDE RAILS UP X 2, CALL NOGUERA WITHIN REACH. WILL CONTINUE TO MONITOR THROUGHOUT SHIFT Addendum: 11/08/22 at 1842 by BRICE VERMA RN ERROR
--- NOTE | 2022-11-08 18:52 | NUR ---
LEGAL DOCUMENT SPECIALIST CLOSING NOTE PATIENT IN BED, ALERT AND ORIENTED X 2. DENIES PAIN OR ANY DISCOMFORT AT THIS TIME; VITAL SIGNS STABLE. DR HOWARD NOTIFIED OF ADMISSION. ON NASAL CANNULA AT 3 LPM, TOLERATED WELL AND NO RESPIRATORY DISTRESS NOTED; ADMINISTERED PRESCRIBED MEDICATIONS; PATIENT'S NEEDS ATTENDED; WITH IV ACCESS IN LFA G20 - SALINE LOCK, INTACT AND PATENT; WITH LEFT FEMORAL CATHETER; SAFETY MEASURES IN PLACED, BED IN LOWEST POSITION, LOCKED, SIDE RAILS UP X 2, CALL NOGUERA WITHIN REACH. WILL ENDORSE TO INTERNAL GRINDING MACHINE OPERATOR NURSE FOR CONTINUITY OF CARE
--- NOTE | 2022-11-08 19:36 | NUR ---
tele asp net mvc developer initial notes. Received report from am nurse and checked the patient. He's lying in bed on semi fowlers position with side rails x3 up. heplock on his left hand gauge 20 patent and intact. Denies any pain or any discomfort. He's on tele ST per monitor. Re- orient where he at and how to used the call light system and encourage him to use if he needs some help or needs assistance. Kept him warm and comfortable at all times. Bed in low and lock in position with side rails x2 up . place call light at reach. will continue monitoring.
[2022-11-08 20:00] VITALS: BP 99/60
[2022-11-08 20:32] LABS: HEMOGLOBIN 10.7 g/dL (13.5-17.5)
--- NOTE | 2022-11-08 21:17 | NUR ---
ms [place] guide notes Protonix given already by the dayshift nurse , pharmacy Moi mueller .
[2022-11-09] VITALS: BP 101/63
--- NOTE | 2022-11-09 02:39 | NUR ---
TELE SURVEY FIELD TECHNICIAN NOTES PT SLEEPING COMFORTABLY IN BED WITHOUT ANY DISTRESS NOTED TELE SINUS TACH. WILL CONTINUE MONITORING.
--- NOTE | 2022-11-09 06:58 | NUR ---
TELE BENZENE WORKER CLOSING NOTES PT AWAKE AND ALERT . DENIES ANY PAIN OR ANY DISCOMFORT. SLEPT WELL AND STABLE THROUGHOUT THE NIGHT. KEPT HIM WARM AND COMFORTABLE AT ALL TIMES. HE'S ON SEMI FOWLERS POSITION WITH SIDE RAILS X2 UP AND BED IN LOW AND LOCK IN POSITION. BED ALARM SET FOR SAFETY. HAND HELD THE CALL LIGHT TO THE PATIENT. WILL ENDORSE TO AM NURSE.
--- NOTE | 2022-11-09 07:15 | NUR ---
CADWORX PIPING DESIGNER OPENING NOTE RECEIVED PT AWAKE IN BED. A/OX2-3 ABLE TO MAKE NEEDS KNOWN. CURRENTLY ON 2L NC, SATURATING WELL. ON BREAKER TENDER READING NORMAL SINUS RHYTHM, WITH HR AT 81. NO CARDIAC DISTRESS NOTED. IV ACCESS ON LEFT HAND G20, PATENT AND FLUSHES WELL AND HD CATH ON LEFT FEMORAL. PT USING URINAL TO VOID. SAFETY PRECAUTIONS IN PLACE WITH BED IN LOWEST LOCKED POSITION, CALL LIGHT AND TRAY WITHIN REACH. WILL CONTINUE TO MONITOR.
[2022-11-09 07:19] LABS: BASOPHILS # (AUTO) 0.1 K/uL (0.0-0.2); BASOPHILS % (AUTO) 1.1 % (0.0-2.0); EOSINOPHILS % (AUTO) 0.1 % (0.0-6.0); HEMATOCRIT 35 % (39-51); HEMOGLOBIN 11.1 g/dL (13.5-17.5); LYMPHOCYTES # (AUTO) 0.2 K/uL (0.8-4.8); LYMPHOCYTES % (AUTO) 1.5 % (20.0-44.0); MEAN CORPUSCULAR HGB CONC 32 g/dl (31.0-36.0); MEAN CORPUSCULAR VOLUME 110 fL (80-96); MONOCYTES # (AUTO) 1.4 K/uL (0.1-1.30); MONOCYTES % (AUTO) 10.4 % (2.0-12.0); NEUTROPHILS # (AUTO) 11.8 K/uL (1.8-8.9); NEUTROPHILS % (AUTO) 86.9 % (43.0-81.0); PLATELET COUNT (AUTO) 124 K/uL (150-450); RED BLOOD CELL COUNT(AUTO) 3.14 MIL/uL (4.5-6.0); WHITE BLOOD COUNT (AUTO) 13.6 K/uL (4.3-11.0)
[2022-11-09 07:34] LABS: CARBON DIOXIDE 23 mmol/L (21-32); CHLORIDE 97 mmol/L (98-107); GLUCOSE 81 mg/dL (74-106); PHOSPHORUS 7.7 mg/dL (2.5-4.9)
[2022-11-09 07:48] LABS: CHOLESTEROL 107 mg/dL (<200); HDL CHOLESTEROL 49 mg/dL (40-60); LDL 49 mg/dL (0-99); SODIUM SERUM 135 mmol/L (136-145); TRIGLYCERIDES 58 mg/dL (30-150)
[2022-11-09 08:00] VITALS: BP 96/64
[2022-11-09 08:12] LABS: CREATININE 9.3 mg/dL (0.6-1.3); POTASSIUM 6.5 mmol/L (3.5-5.1)
[2022-11-09 08:13] LABS: UREA NITROGEN, BLOOD 110 mg/dL (7-18)
[2022-11-09] MEDS: PANTOPRAZOLE 40 MG VIAL IV SCH ×2 (08:35→21:34)
[2022-11-09] MEDS: ONDANSETRON HCL/PF 4 MG/2 ML VIAL IVP PRN (08:37)
--- NOTE | 2022-11-09 08:41 | NUR ---
WOUND CARE CONSULT: PT SEEN FOR SACRAL SCARRING,PRESENT ON ADMISSION. PT NOTED TO HAVE PULLED OUT LEFT FEMORAL CATHETER. RN AND INSIDE SALES TRAINER NOTIFIED. GAUZE PRESSURE DRESSING APPLIED BY RN. DISCUSSED SKIN PROTECTION WITH NURSING STAFF. MD IN AGREEMENT WITH PLAN OF CARE.
[2022-11-09] MEDS ORDERED: INSULIN REGULAR, HUMAN 100 UNIT/ML 3 ML VIAL IV ONE (09:00)
[2022-11-09] MEDS ORDERED: DEXTROSE 50%-WATER 50 ML DISP.SYRIN IVP ONE (09:00)
[2022-11-09] MEDS ORDERED: Z GUARD REMEDY 4 OZ OINT TP PRN (09:00)
--- NOTE | 2022-11-09 09:00 | NUR ---
RN NOTES PATIENT ACCIDENTALLY PULLED OUT HIS LEFT FEMORAL HD CATH WITH MINIMAL BLEEDING NOTED. APPLIED PRESSURE UNTIL BLEEDING STOPPED. DRY PRESSURE KEPT IN PLACE. DR HOWARD MADE AWARE WITH ORDER TO NOTIFY DR AMBROSIO TO LOOK FOR SOMEONE TO INSERT HD CATH. DR AMBROSIO NOTIFIED AND SAID THAT HE WILL. DR HOWARD ALSO ORDERED TO ADMINISTER REGULAR INSULIN 10 UNITS IV AND D50 25MG IVP X1 DOSE.
[2022-11-09] MEDS ORDERED: HEPARIN SODIUM,PORCINE/PF 50 UNIT/5 ML DISP.SYRIN IV ONE (10:00)
[2022-11-09] MEDS: Z GUARD REMEDY 4 OZ OINT TP SCH (10:01)
--- NOTE | 2022-11-09 11:15 | NUR ---
RN NOTES PATIENT SIGNED CONSENT FOR HD CATHETER PLACEMENT. DR MOROCHO PLACED TEMPORARY LEFT FEMORAL HD CATHETER AT BEDSIDE.
[2022-11-09 11:31] VITALS: BP 100/65
--- NOTE | 2022-11-09 11:54 | NUR ---
RN NOTES PT NOTED WITH HEMATURIA, DR HOWARD MADE AWARE WITH ORDER TO COLLECT URINE SPECIMEN WITH STRAIGHT CATHETER. WILL, CARRY OUT ORDER.
[2022-11-09 12:58] LABS: COLOR,URINE BROWN (YELLOW)
[2022-11-09 12:59] LABS: BILIRUBIN,URINE 2+ (NEGATIVE); UGLUCOSE NEGATIVE (NEGATIVE)
[2022-11-09 13:00] LABS: PH,URINE 7.5 (5.0-8.0)
[2022-11-09 13:01] LABS: LEUKOCYTE ESTERASE ,URINE 3+ (NEGATIVE); NITRITE, URINE NEGATIVE (NEGATIVE); PROTEIN,URINE 3+ mg/dl (NEGATIVE); UROBILINOGEN,URINE 0.2 EU/dL (0.2)
[2022-11-09 13:10] LABS: BACTERIA,URINE None seen /HPF (None Seen); RBC,URINE TOO NUMEROUS TO COUN /HPF (0-2); SQUAMOUS EPITHELIAL CELL,UR Few /HPF (None Seen); WBC,URINE 0-2 /HPF (0-3)
[2022-11-09] MEDS: MEROPENEM 500 MG in IV NS 0.9% 50 ML IV SCH (14:18)
[2022-11-09] MEDS ORDERED: ALBUMIN 25% 25 GM in PREMIX 1 EA IV PRN (14:30)
[2022-11-09 15:37] VITALS: BP 92/59
--- NOTE | 2022-11-09 15:49 | NUR ---
RN NOTE PT HAS TEMPERATURE OF 101.1 AND REPORTS FEELING VERY HOT. GAVE TYLENOL AND PUT AN ICE PACK ON NECK. WILL CONTINUE TO MONITOR.
[2022-11-09 17:10] LABS: OCCULT BLOOD STOOL NEGATIVE (NEGATIVE)
[2022-11-09 18:30] VITALS: BP 101/65
--- NOTE | 2022-11-09 18:40 | NUR ---
PASTEURISER OPERATOR CLOSING NOTES PT AWAKE AND RESTING IN BED. A/O X2-3, ABLE TO MAKE NEEDS KNOWN . DENIES ANY PAIN OR ANY DISCOMFORT AT THIS TIME. ON SUPPLEMENTAL O2 NC @2L. TELE MONITOR READS SINUS RHYTHM, HEART RATE 79bpm, NO VERBALIZATION OF CARDIAC DISTRESS OR PAIN. KEPT CLEAN AND DRY. SAFETY PRECAUTIONS MAINTAINED WITH HOB IN SEMI FOWLERS POSITION WITH SIDE RAILS UP X2 UP. BED IN LOWEST AND LOCKED POSITION. BED ALARM ON WITH CALL LIGHT AND TRAY WITHIN. WILL ENDORSE TO AM NURSE.
--- NOTE | 2022-11-09 18:56 | NUR ---
RN NOTES PATIENT JUST COMPLETED AND TOLERATED HD VIA LEFT FEMORAL HD CATHETER WITH "0" OUTPUT. WILL ENDORSED.
[2022-11-09 20:00] VITALS: BP 114/62
--- NOTE | 2022-11-09 20:23 | NUR ---
TELE SPECIAL EDUCATION TEACHERS INITIAL NOTES Received pt in bed awake and alert oriented x3 , watching tv at this time, with O2 at 2 liters via nasal canula . No sob or no discomfort noted. re-orient where he at and how to use the call light system and pt understood well. Reposition him on semi fowlers with side rails x3 up and bed in low and lock in position .Kept him warm and comfortable at all times. Bed alarm set for safety. place call light at reach.
[2022-11-10] VITALS: BP 116/62
--- NOTE | 2022-11-10 | NUR ---
TELE LANDSCAPE ARCHITECTURE TEACHER NOTES PT SLEEPING COMFORTABLY IN BED WITHOUT ANY DISTRESS NOTED. AROUSE EASILY DENIES ANY PAIN OR ANY DISCOMFORT. WILL CONTINUE MONITORING.
[2022-11-10 04:00] VITALS: BP 115/67
--- NOTE | 2022-11-10 05:36 | NUR ---
TELE SEATING CAPTAIN NOTES DIALYSIS NURSE JUST ARRIVED AND STARTED SETTING UP THE DIALYSIS MACHINE . PT AWAKE , ALERT AND AWARE WHAT'S GOING ON. NO SIGNS OF ANY DISTRESS NOTED. TELE SR PER MONITOR.
[2022-11-10 06:52] LABS: CALCIUM, SERUM 8.1 mg/dL (8.5-10.1); CARBON DIOXIDE 26 mmol/L (21-32); CHLORIDE 98 mmol/L (98-107); CREATININE 6.1 mg/dL (0.6-1.3); GLUCOSE 89 mg/dL (74-106); POTASSIUM 4.8 mmol/L (3.5-5.1); SODIUM SERUM 132 mmol/L (136-145); UREA NITROGEN, BLOOD 52 mg/dL (7-18)
--- NOTE | 2022-11-10 06:57 | NUR ---
TELE CROWN PERFORATOR OPERATOR CLOSING NOTES PT AWAKE AND ALERT WATCHING TV WHILE ON DIALYSIS STILL GOING ON. DENIES ANY PAIN OR ANY DISCOMFORT. NO SOB NOTED. STABLE THROUGHOUT THE NIGHT. MORNING CARE DONE WITH THE HELPED OF AUTO TRANSPORT DRIVER. TELE SR PER MONITOR. KEPT HIM WARM AND COMFORTABLE AT ALL TIMES. PLACE CALL LIGHT AT REACH WILL ENDORSE TO AM NURSE FOR CONTINUITY OF CARE.
--- NOTE | 2022-11-10 07:30 | NUR ---
HOUSING QUALITY STANDARD INSPECTOR OPENING NOTES RECEIVED PATIENT ON BED AWAKE AND A/O X4. ON O2 AT 2LPM VIA NASAL CANNULA TOLERATING WELL. NO SOB NOTED. NOT IN DISTRESS. ON ONGOING HEMODIALYSIS. WITH NO COMPLAINTS OF PAIN OR DISCOMFORT AT THIS TIME. ON TELE MONITOR CURRENTLY READING SINUS RHYTHM AT 95BPM. WITH IV ACCESS AT THE LEFT HAND G20 SALINE LOCKED, PATENT AND INTACT. SAFETY MEASURES IN PLACED. CALL LIGHT WITHIN REACH. BED ON LOWEST LOCKED POSITION, SIDE RAILS UP X2. WILL CONTINUE TO MONITOR.
[2022-11-10 08:00] VITALS: BP 113/68
[2022-11-10] MEDS: Z GUARD REMEDY 4 OZ OINT TP SCH (08:33)
[2022-11-10] MEDS: PANTOPRAZOLE 40 MG VIAL IV SCH (08:33)
[2022-11-10 13:37] LABS: BASOPHILS % (AUTO) 0.4 % (0.0-2.0); EOSINOPHILS % (AUTO) 0.2 % (0.0-6.0); HEMATOCRIT 31 % (39-51); HEMOGLOBIN 9.8 g/dL (13.5-17.5); LYMPHOCYTES # (AUTO) 0.1 K/uL (0.8-4.8); LYMPHOCYTES % (AUTO) 1.1 % (20.0-44.0); MEAN CORPUSCULAR HGB CONC 32 g/dl (31.0-36.0); MEAN CORPUSCULAR VOLUME 112 fL (80-96); MONOCYTES % (AUTO) 9.8 % (2.0-12.0); NEUTROPHILS # (AUTO) 9.2 K/uL (1.8-8.9); NEUTROPHILS % (AUTO) 88.5 % (43.0-81.0); PLATELET COUNT (AUTO) 106 K/uL (150-450); RED BLOOD CELL COUNT(AUTO) 2.76 MIL/uL (4.5-6.0); WHITE BLOOD COUNT (AUTO) 10.3 K/uL (4.3-11.0)
[2022-11-10] MEDS: MEROPENEM 500 MG in IV NS 0.9% 50 ML IV SCH (14:19)
[2022-11-10 16:00] VITALS: BP 119/65
--- NOTE | 2022-11-10 18:34 | NUR ---
DISTRIBUTION ENGINEERING TECHNOLOGIST CLOSING NOTES PATIENT ON BED AWAKE AND A/O X4. ON O2 AT 2LPM VIA NASAL CANNULA TOLERATING WELL. NO SOB NOTED. NOT IN DISTRESS. WITH NO COMPLAINTS OF PAIN OR DISCOMFORT AT THIS TIME. ON TELE MONITOR CURRENTLY READING SINUS RHYTHM AT 90BPM. WITH IV ACCESS AT THE LEFT HAND G20 SALINE LOCKED, PATENT AND INTACT. DUE MEDS GIVEN. SAFETY MEASURES IN PLACED. CALL LIGHT WITHIN REACH. BED ON LOWEST LOCKED POSITION, SIDE RAILS UP X2. WILL ENDORSE TO NEXT SHIFT FOR [place].
--- NOTE | 2022-11-10 19:30 | NUR ---
MS RN OPENING NOTES - RECEIVED PATIENT AWAKE, BED IN SEMI-ESTRADA'S. A/O X2, UPPER [place]. BREATHING EVEN AND NON-LABORED, ON O2 AT 3LPM VIA NASAL CANULA. DENIES PAIN AT THIS TIME. HAS LEFT HAND IV ACCESS #20G AND SALINE LOCKED. LEAKING NOTED. SAFETY PRECAUTIONS IN PLACE: BED LOCKED AND IN LOW POSITION, SIDE RAILS UP X2, CALL LIGHT WITHIN REACH. WILL CONTINUE PLAN OF CARE.
[2022-11-10 20:00] VITALS: BP 110/82
--- NOTE | 2022-11-10 20:43 | NUR ---
PER ON-CALL HOSPITALIST IRAM JACKSON NP, HOSPITALIST JON FERREIRA NP CAN DO THE MED RECON TOMORROW. CN JAMARI AWARE.
[2022-11-10 22:09] LABS: BAND % (MANUAL) 7 % (0.0-5.0); LYMPHOCYTES % (MANUAL) 2 % (16-48); MONOCYTES % (MANUAL) 7 % (0-11.0); NEUTROPHILS % (MANUAL) 84 (42-76)
--- NOTE | 2022-11-11 06:10 | NUR ---
RECEIVED CALL FROM LAB, BLOOD CX GRAM POSITIVE COCCI SEEN. PATIENT ON MERREM 500MG. WILL ENDORSE TO AM NURSE.
[2022-11-11 06:15] LABS: BASOPHILS % (AUTO) 0.1 % (0.0-2.0); EOSINOPHILS % (AUTO) 0.4 % (0.0-6.0); HEMATOCRIT 33 % (39-51); HEMOGLOBIN 10.7 g/dL (13.5-17.5); LYMPHOCYTES # (AUTO) 0.2 K/uL (0.8-4.8); LYMPHOCYTES % (AUTO) 1.9 % (20.0-44.0); MEAN CORPUSCULAR HGB CONC 32 g/dl (31.0-36.0); MEAN CORPUSCULAR VOLUME 110 fL (80-96); MONOCYTES # (AUTO) 1.4 K/uL (0.1-1.30); NEUTROPHILS # (AUTO) 6.6 K/uL (1.8-8.9); NEUTROPHILS % (AUTO) 80.6 % (43.0-81.0); PLATELET COUNT (AUTO) 119 K/uL (150-450); WHITE BLOOD COUNT (AUTO) 8.2 K/uL (4.3-11.0)
[2022-11-11 06:39] LABS: CALCIUM, SERUM 8.5 mg/dL (8.5-10.1); CARBON DIOXIDE 25 mmol/L (21-32); CHLORIDE 98 mmol/L (98-107); CREATININE 6.7 mg/dL (0.6-1.3); GLUCOSE 98 mg/dL (74-106); PHOSPHORUS 6.1 mg/dL (2.5-4.9); POTASSIUM 4.6 mmol/L (3.5-5.1); SODIUM SERUM 133 mmol/L (136-145); UREA NITROGEN, BLOOD 49 mg/dL (7-18)
--- NOTE | 2022-11-11 07:25 | NUR ---
MS RN CLOSING NOTES - PATIENT IN BED ASLEEP, EASY TO AROUSE. ABLE TO VERBALIZE NEEDS. WATCHED TV THROUGHOUT THE NIGHT. TITRATED O2 TO 2LPM, SATURATING AT 93%-94%. NON-PRODUCTIVE COUGH NOTED. AFEBRILE. NO C/O PAIN OR DISCOMFORT. NOT IN RESPIRATORY OR CARDIAC DISTRESS. RE-INSERTED IV ACCESS TO LEFT HAND #20G INTACT, PATENT AND FLUSHING. USES URINAL, HEMATURIA NOTED. ALL NEEDS ATTENDED. SAFETY PRECAUTIONS MAINTAINED. WILL ENDORSE TO NEXT SHIFT FOR CONTINUITY OF CARE.
--- NOTE | 2022-11-11 07:45 | NUR ---
RN OPENING NOTE PATIENT AWAKE IN BED RESTING, A/O X 2. NO S/S OF PAIN NOTED AT THIS TIME. ON 2L OXYGEN VIA NC, NO DISTRESS OR SHORTNESS OF BREATH NOTED. IV ACCESS L HAND #20G, INTACT, PATENT AND FLUSHING WELL. FALL AND SAFETY MEASURES IN PLACE, BED ALARM ON, BED IN LOW AND LOCK POSITION, CALL LIGHT AND TABLE WITHIN EASY REACH, SIDE RAILS UP X2. WILL CONTINUE TO MONITOR.
[2022-11-11 08:00] VITALS: BP 103/69
[2022-11-11] MEDS: Z GUARD REMEDY 4 OZ OINT TP SCH (08:28)
[2022-11-11] MEDS ORDERED: PANTOPRAZOLE 40 MG VIAL IV SCH (09:00)
[2022-11-11] MEDS: CARVEDILOL 3.125 MG TABLET PO SCH (12:00)
[2022-11-11] MEDS ORDERED: ALBUTEROL FS 2.5 MG/0.5 ML VIAL.NEB IH PRN (12:00)
[2022-11-11 12:07] LABS: BAND % (MANUAL) 9 % (0.0-5.0); BASOPHILS % (MANUAL) 0 % (0.0-2.0); EOSINOPHILS % (MANUAL) 1 % (0-4); LYMPHOCYTES % (MANUAL) 5 % (16-48); MONOCYTES % (MANUAL) 6 % (0-11.0); NEUTROPHILS % (MANUAL) 79 (42-76)
[2022-11-11] MEDS: VITAMIN B COMP W-C 1 TAB TABLET PO SCH (12:54)
[2022-11-11] MEDS: MEROPENEM 500 MG in IV NS 0.9% 50 ML IV SCH (14:03)
[2022-11-11] MEDS ORDERED: VANCOMYCIN 1 GM in IV D5W 250ml IV ONE (16:00)
[2022-11-11] MEDS: CINACALCET HCL 30 MG TABLET PO SCH (17:03)
--- NOTE | 2022-11-11 19:26 | NUR ---
RN CLOSING NOTE PATIENT AWAKE IN BED RESTING, A/O X 2. NO S/S OF PAIN NOTED AT THIS TIME. ON 2L OXYGEN VIA NC, NO DISTRESS OR SHORTNESS OF BREATH NOTED. IV ACCESS LFA #20G, INTACT, PATENT AND FLUSHING WELL. SCHEDULE MEDICATIONS ADMINISTERED. FALL AND SAFETY MEASURES IN PLACE, BED ALARM ON, BED IN LOW AND LOCK POSITION, CALL LIGHT AND TABLE WITHIN EASY REACH, SIDE RAILS UP X2. 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
[2022-11-11 20:00] VITALS: BP 112/74
--- NOTE | 2022-11-11 20:07 | NUR ---
MS RN OPENING NOTES: RECEIVED PATIENT AWAKE IN BED, BED IN LOW POSITION CALL LIGHTS WITHIN REACH, NO COMPLAIN OF PAIN AND DISCOMFORT AT THIS TIME, ON O2 INHALATION AT 2LPM SATURATING WELL, PATIENT IS A/OX2 ABLE TO MAKE NEEDS KNOWN. IV LINE AT LEFT FFA#20 SL, WITH LEFT FEMORAL HD CATHETER- ON NPO POST MIDNIGHT FOR POSSIBLE PERMACATH INSERTION TOMM, ON MONITORING FOR HEMATURIA PATIENT HAS HX OF GROSS HEMATURIA, PATIENT KEPT CLEAN AND DRY ALL NEEDS MET WILL CONTINUE TO MONITOR.
[2022-11-11 20:33] VITALS: BP 112/74
[2022-11-12] MEDS: ONDANSETRON HCL/PF 4 MG/2 ML VIAL IVP PRN (03:21)
[2022-11-12 06:41] LABS: BASOPHILS % (AUTO) 0.2 % (0.0-2.0); EOSINOPHILS % (AUTO) 1.2 % (0.0-6.0); HEMATOCRIT 33 % (39-51); HEMOGLOBIN 10.6 g/dL (13.5-17.5); LYMPHOCYTES # (AUTO) 0.2 K/uL (0.8-4.8); LYMPHOCYTES % (AUTO) 2.6 % (20.0-44.0); MEAN CORPUSCULAR HGB CONC 32 g/dl (31.0-36.0); MEAN CORPUSCULAR VOLUME 111 fL (80-96); MONOCYTES # (AUTO) 1.2 K/uL (0.1-1.30); MONOCYTES % (AUTO) 17.7 % (2.0-12.0); NEUTROPHILS # (AUTO) 5.3 K/uL (1.8-8.9); NEUTROPHILS % (AUTO) 78.3 % (43.0-81.0); PLATELET COUNT (AUTO) 115 K/uL (150-450); RED BLOOD CELL COUNT(AUTO) 3.02 MIL/uL (4.5-6.0); WHITE BLOOD COUNT (AUTO) 6.8 K/uL (4.3-11.0)
[2022-11-12 07:00] VITALS: BP 150/77
[2022-11-12] MEDS ORDERED: IOHEXOL 240MG/ML 0 ML IV ONE (07:01)
[2022-11-12] MEDS ORDERED: HEPARIN SODIUM, PORCINE 1,000 UNIT/ML VIAL ONE (07:02)
[2022-11-12] MEDS ORDERED: LIDOCAINE HCL/MPF 1% 30 ML VIAL IJ ONE (07:02)
[2022-11-12] MEDS ORDERED: ANESTHESIA TRAY IN PYXIS 1 EA TRAY MC ONE (07:02)
[2022-11-12] MEDS ORDERED: FENTANYL PF 100MCG/2ML AMPUL ONE (07:12)
--- NOTE | 2022-11-12 07:30 | NUR ---
MS RN OPENING NOTES: RECEIVED PATIENT AWAKE IN BED COMFORTABLY, AROUSABLE TO VERBAL STIMULI, BED IN LOW POSITION CALL LIGHTS WITHIN REACH, NO COMPLAIN OF PAIN AND DISCOMFORT AT THIS TIME, ON O2 INHALATION AT 2LPM SATURATING WELL, PATIENT ON NPO, SCHEDULED PERMACATH PLACEMENT FOR HD, CONSENT SIGNED, PATIENT KEPT CLEAN AND DRY ALL NEEDS MET, WILL CONTINUE TO MONITOR.
[2022-11-12 07:45] LABS: CALCIUM, SERUM 7.9 mg/dL (8.5-10.1); CARBON DIOXIDE 22 mmol/L (21-32); CHLORIDE 96 mmol/L (98-107); GLUCOSE 101 mg/dL (74-106); PHOSPHORUS 6.3 mg/dL (2.5-4.9); SODIUM SERUM 132 mmol/L (136-145); UREA NITROGEN, BLOOD 74 mg/dL (7-18)
--- NOTE | 2022-11-12 07:49 | NUR ---
MS RN CLOSING NOTES: PATIENT SLEEP IN BED COMFORTABLY, AROUSABLE TO VERBAL STIMULI, BED IN LOW POSITION CALL LIGHTS WITHIN REACH, NO COMPLAIN OF PAIN AND DISCOMFORT AT THIS TIME, ON O2 INHALATION AT 2LPM SATURATING WELL, PATIENT ON NPO, SCHEDULED PERMACATH PLACEMENT FOR HD, CONSENT SIGNED, PATIENT WITH HISTORY OF HEMETURIA, ON MONITORING FOR BLEEDING, PATIENT KEPT CLEAN AND DRY ALL NEEDS MET ENDORSE TO INCOMING SHIFT.
[2022-11-12 07:56] LABS: CREATININE 8.7 mg/dL (0.6-1.3)
[2022-11-12 08:00] VITALS: BP 105/67
[2022-11-12] MEDS: CARVEDILOL 3.125 MG TABLET PO SCH (09:00)
[2022-11-12] MEDS: VITAMIN B COMP W-C 1 TAB TABLET PO SCH (09:00)
[2022-11-12] MEDS ORDERED: VANCOMYCIN POST DIALYSIS 500MG IV PRN ×2 (10:00)
[2022-11-12] MEDS: PANTOPRAZOLE 40 MG TABLET.DR PO SCH (10:34)
[2022-11-12] MEDS: Z GUARD REMEDY 4 OZ OINT TP SCH (10:37)
[2022-11-12] MEDS ORDERED: IV NS 0.9% 500 ML IV ONE (12:30)
[2022-11-12] MEDS: MEROPENEM 500 MG in IV NS 0.9% 50 ML IV SCH (15:23)
[2022-11-12 16:00] VITALS: BP 90/50
[2022-11-12] MEDS ORDERED: VANCOMYCIN 1 GM in IV D5W 250ml IV ONE (16:00)
[2022-11-12] MEDS: ANCEF 1 GM/50 ML D5W IV SCH ×2 (17:46)
[2022-11-12] MEDS: CINACALCET HCL 30 MG TABLET PO SCH (17:50)
--- NOTE | 2022-11-12 19:30 | NUR ---
noc rn opening note received patient in bed, a/ox1 to name only, speech delayed. no s/s of apparent distress on 3lpm of o2 via nc. denies pain at this time. lt. femoral HD cath noted in place with clean, dry transparent dressing. IV site on lt. FA #20g on saline lock. patient given his call light at this time. re-oriented with the use of call light. safety in place. will continue with patient's plan of care.
--- NOTE | 2022-11-12 19:36 | NUR ---
MS RN CLOSING NOTES: PATIENT AWAKE IN BED COMFORTABLY, AROUSABLE TO VERBAL STIMULI, BED IN LOW POSITION CALL LIGHTS WITHIN REACH, NO COMPLAIN OF PAIN AND DISCOMFORT AT THIS TIME, ON O2 INHALATION AT 2LPM SATURATING WELL, PATIENT, PATIENT KEPT CLEAN AND DRY ALL NEEDS MET ENDORSED TO ACQUISITION COST ESTIMATOR RN.
[2022-11-12 20:00] VITALS: BP 98/58
[2022-11-13] MEDS: ANCEF 1 GM/50 ML D5W IV SCH ×2 (00:08)
[2022-11-13 07:11] LABS: BASOPHILS % (AUTO) 0.2 % (0.0-2.0); EOSINOPHILS % (AUTO) 1.3 % (0.0-6.0); HEMATOCRIT 30 % (39-51); LYMPHOCYTES # (AUTO) 0.2 K/uL (0.8-4.8); LYMPHOCYTES % (AUTO) 2.2 % (20.0-44.0); MEAN CORPUSCULAR HGB CONC 34 g/dl (31.0-36.0); MEAN CORPUSCULAR VOLUME 108 fL (80-96); MONOCYTES # (AUTO) 1.3 K/uL (0.1-1.30); MONOCYTES % (AUTO) 13.8 % (2.0-12.0); NEUTROPHILS # (AUTO) 7.6 K/uL (1.8-8.9); NEUTROPHILS % (AUTO) 82.5 % (43.0-81.0); PLATELET COUNT (AUTO) 116 K/uL (150-450); RED BLOOD CELL COUNT(AUTO) 2.76 MIL/uL (4.5-6.0); WHITE BLOOD COUNT (AUTO) 9.3 K/uL (4.3-11.0)
--- NOTE | 2022-11-13 07:20 | NUR ---
FELT HANGER OPENING NOTES RECEIVED PATIENT IN BED, AWAKE ALERT,ORIENTED TO NAME ONLY. NO RESPIRATORY DISTRESS, ON OXYGEN @ 3L/MIN VIA N/C, TOLERATING WELL. NO S/ PAIN OR DISCOMFORT NOTED AT THIS TIME. HAS IV ACCESS ON LEFT FOREARM, SALINE LOCK, IV SITE PATENT, INTACT, FLUSHES WELL WITH NO S/S INFILTRATION NOTED. ALL SAFETY MEASURES IN PLACE. CALL LIGHT WITHIN REACH. BED LOCKED AND IN LOWEST POSITION. WILL REPOSITION FOR COMFORT AND WILL CONTINUE TO MONITOR PATIENT THROUGHOUT SHIFT. Addendum: 11/13/22 at 1028 by SANDRO LLANES RN CONTINUATION ON NOTES ABOVE. PATIENT ALSO NOTED TO HAVE THE LEFT FEMORAL PERMACATH INTACT, NO BLEEDING NOTED, DRESSING DRY AND IN PLACE.
[2022-11-13 07:47] LABS: CALCIUM, SERUM 7.7 mg/dL (8.5-10.1); CARBON DIOXIDE 25 mmol/L (21-32); CHLORIDE 95 mmol/L (98-107); CREATININE 6.9 mg/dL (0.6-1.3); GLUCOSE 95 mg/dL (74-106); MAGNESIUM 1.9 mg/dL (1.8-2.4); PHOSPHORUS 6.1 mg/dL (2.5-4.9); POTASSIUM 4.9 mmol/L (3.5-5.1); SODIUM SERUM 131 mmol/L (136-145); UREA NITROGEN, BLOOD 56 mg/dL (7-18)
[2022-11-13] MEDS: PANTOPRAZOLE 40 MG TABLET.DR PO SCH (07:53)
[2022-11-13 08:00] VITALS: BP 100/60
[2022-11-13] MEDS: CARVEDILOL 3.125 MG TABLET PO SCH (08:41)
[2022-11-13] MEDS: VITAMIN B COMP W-C 1 TAB TABLET PO SCH (08:49)
[2022-11-13] MEDS: Z GUARD REMEDY 4 OZ OINT TP SCH (08:50)
--- NOTE | 2022-11-13 11:35 | NUR ---
EFE MADDEN, LIBORIO MADE ROUNDS TO SEE THE PATIENT
[2022-11-13 12:05] LABS: BAND % (MANUAL) 5 % (0.0-5.0); EOSINOPHILS % (MANUAL) 2 % (0-4); LYMPHOCYTES % (MANUAL) 3 % (16-48); MONOCYTES % (MANUAL) 10 % (0-11.0); NEUTROPHILS % (MANUAL) 80 (42-76)
[2022-11-13] MEDS: MEROPENEM 500 MG in IV NS 0.9% 50 ML IV SCH (13:33)
[2022-11-13 16:00] VITALS: BP 107/66
[2022-11-13] MEDS: CINACALCET HCL 30 MG TABLET PO SCH (17:11)
--- NOTE | 2022-11-13 18:32 | NUR ---
VENDING MACHINE REFILLER CLOSING NOTES PATIENT IN BED, AWAKE ALERT,ORIENTED TO NAME ONLY. NO RESPIRATORY DISTRESS NOTED THROUGHOUT SHIFT. REMAINS ON OXYGEN @ 3L/MIN VIA N/C, TOLERATING WELL. IV ACCESS ON LEFT FOREARM, PATENT, INTACT, FLUSHES WELL WITH NO S/S INFILTRATION NOTED. PATIENT'S LEFT FEMORAL PERMACATH INTACT, NO BLEEDING NOTED, DRESSING CLEAN AND DRY. PATIENT USED URINAL AND EMPTIED 200 ML OF URINE NOTED WITH HEMATURIA. PATIENT DID NO DO HEMODIALYSIS AT THIS SHIFT. ALL SAFETY MEASURES IMPLEMENTED. ALL NEEDS MET AND ANTICIPATED. BED LOCKED AND IN LOWEST POSITION. CALL LIGHT WITHIN REACH.
--- NOTE | 2022-11-13 19:48 | NUR ---
MS RN OPENING NOTES: RECEIVED PATIENT IN BED SLEEPING BUT EASY TO AROUSED,BUBBA WELL ON 3L 02 VIA NC SATTING 98%,NO SIGN SOB/DISTRESS NOTED,NO COMPLAIN OF PAIN AND DISCOMFORT AT THIS TIME,IV SITE ON LFA 20G SL,PATENT AND INTACT,SAFETY MEASURE IN PLACE,CALL LIGHT WITHIN REACH,WILL CONTINUE TO MONITOR.
[2022-11-13 20:00] VITALS: BP 103/67
--- NOTE | 2022-11-14 06:25 | NUR ---
MS RN CLOSING NOTES: PATIENT IN BED SLEEPING BUT EASY TO AROUSED,BUBBA WELL ON 3L 02 VIA NC SATTING 97.4%,NO SIGN SOB/DISTRESS NOTED,NO COMPLAIN OF PAIN AND DISCOMFORT DURING SHIFT,DUE MEDS GIVEN ORDER,ALL NEEDS ATTENDED,IV SITE ON LFA 20G SL,PATENT AND INTACT,SAFETY MEASURE IN PLACE,CALL LIGHT WITHIN REACH,WILL ENDORSED TO NEXT SHIFT.
[2022-11-14 06:44] LABS: BASOPHILS % (AUTO) 0.3 % (0.0-2.0); EOSINOPHILS % (AUTO) 1.9 % (0.0-6.0); HEMATOCRIT 31 % (39-51); HEMOGLOBIN 10.5 g/dL (13.5-17.5); LYMPHOCYTES # (AUTO) 0.3 K/uL (0.8-4.8); LYMPHOCYTES % (AUTO) 3.2 % (20.0-44.0); MEAN CORPUSCULAR HGB CONC 34 g/dl (31.0-36.0); MEAN CORPUSCULAR VOLUME 109 fL (80-96); MONOCYTES # (AUTO) 1.3 K/uL (0.1-1.30); MONOCYTES % (AUTO) 15.6 % (2.0-12.0); NEUTROPHILS # (AUTO) 6.4 K/uL (1.8-8.9); PLATELET COUNT (AUTO) 130 K/uL (150-450); RED BLOOD CELL COUNT(AUTO) 2.87 MIL/uL (4.5-6.0); WHITE BLOOD COUNT (AUTO) 8.1 K/uL (4.3-11.0)
[2022-11-14 07:01] LABS: CALCIUM, SERUM 7.5 mg/dL (8.5-10.1); CARBON DIOXIDE 22 mmol/L (21-32); CHLORIDE 95 mmol/L (98-107); GLUCOSE 98 mg/dL (74-106); MAGNESIUM 1.9 mg/dL (1.8-2.4); PHOSPHORUS 6.4 mg/dL (2.5-4.9); POTASSIUM 5.2 mmol/L (3.5-5.1); SODIUM SERUM 131 mmol/L (136-145); UREA NITROGEN, BLOOD 76 mg/dL (7-18)
[2022-11-14 07:02] LABS: CREATININE 8.4 mg/dL (0.6-1.3)
[2022-11-14 08:00] VITALS: BP 111/67
[2022-11-14] MEDS: Z GUARD REMEDY 4 OZ OINT TP SCH (08:31)
[2022-11-14] MEDS: PANTOPRAZOLE 40 MG TABLET.DR PO SCH (08:31)
[2022-11-14] MEDS: CARVEDILOL 3.125 MG TABLET PO SCH (08:31)
[2022-11-14] MEDS: VITAMIN B COMP W-C 1 TAB TABLET PO SCH (08:31)
--- NOTE | 2022-11-14 08:59 | NUR ---
RN Opening Note Pt AOx1,delayed speech. Patient stares, not able to address patients mental status. Patient states no discomfort, no signs of distress. IV with no signs of infiltration. Discussed plan of care with patient, pt not able to verbalized understanding. All safety precautions taken, call light and table within reach, bed at lowest position. Will continue to monitor throughout shift and provide care as needed Addendum: 11/14/22 at 1820 by RUIZ GONZALEZ RN RN closing Note Patient AOx1, able to express some of his concerns. Patient states blankly, not sure if it is his hearing or cognitive. Patient interested in discharge and going home, discussed plan of care, pt verbalized agreement. No signs of distress or discomfort noted or reported by patient. No signs of IV infiltration. Throughout shift provided assistance as needed and medications as prescribed. Patient remained safe throughout shift, all safety precautions taken, call light and table within reach, bed at lowest position. Will endorse to night nurse for continuity of care.
[2022-11-14] MEDS: MEROPENEM 500 MG in IV NS 0.9% 50 ML IV SCH (13:23)
[2022-11-14 15:44] VITALS: BP 104/49
[2022-11-14 17:33] LABS: LYMPHOCYTES % (MANUAL) 3 % (16-48); MONOCYTES % (MANUAL) 5 % (0-11.0); NEUTROPHILS % (MANUAL) 92 (42-76)
[2022-11-14] MEDS ORDERED: ALBUMIN 25% 25 GM in PREMIX 1 EA IV PRN (18:00)
[2022-11-14] MEDS: CINACALCET HCL 30 MG TABLET PO SCH (19:27)
--- NOTE | 2022-11-14 19:30 | NUR ---
MS RN OPENING NOTE RECEIVED PATIENT IN BED, WITH HOB ELEVATED, S/P HEMODIALYSIS. AFEBRILE AND NOT IN ANY FORM OF ACUTE DISTRESS. ON O2 INHALATION VIA NASAL CANNULA AT 3LPM. WITH IV ACCESS ON LFA 20G-SL. SAFETY MEASURES IN PLACE. KEPT BED IN LOCKED AND IN LOW POSITION. SIDE RAILS UP X2. ADVISED TO USE THE CALL LIGHT WHEN IN NEED OF ASSISTANCE.
[2022-11-14 20:00] VITALS: BP 110/65
--- NOTE | 2022-11-15 06:10 | NUR ---
MS RN NOTE 1 UNIT OF [facility] COMPLETELY TRANSFUSED AT AROUND 0606, PATIENT TOLERATED WELL. NO SOB/WHEEZING NOTED. NO RESPIRATORY DISTRESS AND PATIENT REMAINS AFEBRILE THROUGHOUT THE TRANSFUSION. NO ITCHING OR ANY ADVERSE REACTION AND REPORTED. VITALS TAKEN, WNL AND RECORDED.
--- NOTE | 2022-11-15 06:30 | NUR ---
MS RN CLOSING NOTE PATIENT IN BED, WITH HOB ELEVATED, ASLEEP BUT EASY TO AROUSE AND RESPONDS TO VERBAL AND TACTILE STIMULI. AFEBRILE AND NOT IN ANY FORM OF ACUTE DISTRESS. ON O2 INHALATION VIA NASAL CANNULA AT 3LPM. WITH IV ACCESS ON LFA 20G-SL. TURNED AND REPOSITIONED EVERY 2 HOURS AND TOLERATED TO PROMOTE PROPER CIRCULATION AND COMFORT BY ASSIGNED STAFF. SAFETY MEASURES IN PLACE. KEPT BED IN LOCKED AND IN LOW POSITION. SIDE RAILS UP X2. ADVISED TO USE THE CALL LIGHT WHEN IN NEED OF ASSISTANCE. ALL NURSING NEEDS ATTENDED. ENDORSED TO INCOMING SHIFT FOR CONTINUITY OF CARE.
--- NOTE | 2022-11-15 07:00 | NUR ---
MS NICOLE OPENING NOTES: RECEIVED PATIENT IN BED, AWAKE, ALERT AND ORIENTED X 1 WITH EPISODES OF FORGETFULNESS, AND NEEDS FREQUENT REORIENTATION. PT ABLE TO MAKE NEEDS KNOWN. NO SOB OR CARDIAC DISTRESS NOTED, DENIES PAIN AT THIS TIME. IV ACCESS ON LFA GAUGE 20, PATENT, INTACT AND SL. HD ACCESS ON LEFT CW PERMA CATH. SAFETY MEASURES MAINTAINED: BED LOCKED AND IN LOWEST POSITION. SIDE RAILS UP X 2. CALL LIGHT IN EASY REACH FOR HELP. WILL MONITOR PT ACCORDINGLY. Addendum: 11/15/22 at 0935 by EVELIN OLVERA RN ERROR ITS LEFT FEMOROAL PERMA CATH HD ACCESS
--- NOTE | 2022-11-15 07:01 | NUR ---
MS RN OPENING NOTES: RECEIVED PATIENT IN BED, AWAKE, ALERT AND ORIENTED X 1 WITH EPISODES OF FORGETFULNESS, AND NEEDS FREQUENT REORIENTATION. PT ABLE TO MAKE NEEDS KNOWN. NO SOB OR CARDIAC DISTRESS NOTED, DENIES PAIN AT THIS TIME. IV ACCESS ON LFA GAUGE 20, PATENT, INTACT AND SL. HD ACCESS ON LEFT FEMORAL PERMA CATH NOTED WITH 2 LUMENS. SAFETY MEASURES MAINTAINED: BED LOCKED AND IN LOWEST POSITION. SIDE RAILS UP X 2. CALL LIGHT IN EASY REACH FOR HELP. WILL MONITOR PT ACCORDINGLY.
[2022-11-15 07:10] LABS: CALCIUM, SERUM 7.7 mg/dL (8.5-10.1); CARBON DIOXIDE 25 mmol/L (21-32); CHLORIDE 98 mmol/L (98-107); CREATININE 6.6 mg/dL (0.6-1.3); GLUCOSE 90 mg/dL (74-106); POTASSIUM 5.1 mmol/L (3.5-5.1); SODIUM SERUM 135 mmol/L (136-145); UREA NITROGEN, BLOOD 51 mg/dL (7-18)
[2022-11-15] MEDS: PANTOPRAZOLE 40 MG TABLET.DR PO SCH (07:28)
[2022-11-15 08:00] VITALS: BP 103/72
[2022-11-15 08:34] VITALS: BP 110/70
[2022-11-15] MEDS: VITAMIN B COMP W-C 1 TAB TABLET PO SCH (08:34)
[2022-11-15] MEDS: CARVEDILOL 3.125 MG TABLET PO SCH (08:34)
[2022-11-15] MEDS: Z GUARD REMEDY 4 OZ OINT TP SCH (08:35)
--- NOTE | 2022-11-15 12:59 | NUR ---
RN NOTES: PATIENT FOR SURGERY. PT WAS P/U BY RN NORIS AND TRANSPORTER. PT STABLE WHEN LEFT THE UNIT. ALL CONSENT SIGNED.CHECKLIST DONE.
[2022-11-15] MEDS: MEROPENEM 500 MG in IV NS 0.9% 50 ML IV SCH (13:39)
--- NOTE | 2022-11-15 14:50 | NUR ---
CATERING MANAGER NOTES: PATIENT DC TO SNF, REPORT GIVEN TO BRICE (NATURAL GAS BASIS TRADER). PT ALERT AND ORIENTED X1-2 WITH FORGETFULNESS AND CONFUISONS. NO SOB OR CARDIAC DISTRESS NOTED. ON O2 @2LPM VIA NC ON AND OFF. DISCHARGE PAPERS/PACKET GIVEN TO EMT AND VERBALIZED UNDERSTANDING. BELONGINGS TAKEN WITH THE PT. IV ACCESS REMOVED. IDENTIFICATION KEPT IN PLACE. SKIN ISSUES NOTED AND TOOK PHOTOS, PHOTOS FILED IN PT'S CHART. PT LEFT THE UNIT STABLE VIA SALINAS ACCOMPANIED BY L D RN.
== END 2022-11-15 15:00 | DRG 871 ==
LOC: ER 11:29 → MED 14:56 → TELE 20:04 → MED 11-10 14:55
PROVIDERS: ADMIT Nurse Practitioner Acute Care; ATTEND Nurse Practitioner Acute Care
PROC: 06HN33Z Insertion of Infusion Device into Left Femoral Vein, Percutaneous Approach (ICD-10-PCS; principal; 2022-11-09)
PROC: B54CZZA Ultrasonography of Left Lower Extremity Veins, Guidance (ICD-10-PCS; 2022-11-09)
PROC: 5A1D70Z Performance of Urinary Filtration, Intermittent, Less than 6 Hours Per Day (ICD-10-PCS; 2022-11-09)
PROC: 0JHP3XZ Insertion of Tunneled Vascular Access Device into Left Lower Leg Subcutaneous Tissue and Fascia, Percutaneous Approach (ICD-10-PCS; 2022-11-12)
PROC: 06HN33Z Insertion of Infusion Device into Left Femoral Vein, Percutaneous Approach (ICD-10-PCS; 2022-11-12)
PROC: B51CYZA Fluoroscopy of Left Lower Extremity Veins using Other Contrast, Guidance (ICD-10-PCS; 2022-11-12)
DX: A41.89 Other specified sepsis (principal); G93.41 Metabolic encephalopathy; N18.6 End stage renal disease; N39.0 Urinary tract infection, site not specified; E87.1 Hypo-osmolality and hyponatremia; I13.2 Hypertensive heart and chronic kidney disease with heart failure and with stage 5 chronic kidney disease, or end stage renal disease; J90 Pleural effusion, not elsewhere classified; I50.9 Heart failure, unspecified; J45.909 Unspecified asthma, uncomplicated; M19.90 Unspecified osteoarthritis, unspecified site; Z79.51 Long term (current) use of inhaled steroids; Z79.899 Other long term (current) drug therapy; N32.9 Bladder disorder, unspecified; N40.0 Benign prostatic hyperplasia without lower urinary tract symptoms; M89.8X9 Other specified disorders of bone, unspecified site; E87.5 Hyperkalemia; E83.39 Other disorders of phosphorus metabolism; D63.8 Anemia in other chronic diseases classified elsewhere; D50.0 Iron deficiency anemia secondary to blood loss (chronic); Z86.19 Personal history of other infectious and parasitic diseases; Z99.2 Dependence on renal dialysis; Z87.440 Personal history of urinary (tract) infections; R31.9 Hematuria, unspecified; R26.9 Unspecified abnormalities of gait and mobility; B96.20 Unspecified Escherichia coli [E. coli] as the cause of diseases classified elsewhere
CPT/HCPCS: 36415; 71045-TC; 80048-TC; 80061-TC; 80076-TC; 80202-TC; 81001; 82272-TC; 82962-TC; 83735-TC; 84100-TC; 84484-TC; 85025-TC; 85027-TC; 85730-TC; 86706; 86850-TC; 87040-TC; 87081-TC; 87086-TC; 87340; 90935-TC; 94799-TC; A4216; A6403; C1750; C1757; C1769; C1894; C9113; C9803; G0378; J0690; J1642; J1644; J1815; J2185; J2405; J2704; J3010; J3370; J3490; J7030; J7040; J7050; J7060; P9047; Q9966